=== PATIENT | male | born 1965 | race Two or more races ===

== ENCOUNTER 2020-03-17 11:34 | Outpatient (REF) | payer MEDICAID, SELFPAY | END 2020-03-17 11:35 | disposition home or self-care (01) | LOC: HO.LAB 11:34 | PROVIDERS: PCP Emergency Medicine; Visit Provider Internal Medicine | DX: Z20.828 Contact with and (suspected) exposure to other viral communicable diseases (principal) | CPT/HCPCS: C9803; U0003 ==

== ENCOUNTER 2020-04-19 14:35 | Outpatient (REF) | payer MEDICAID, SELFPAY | END 2020-04-19 14:36 | disposition home or self-care (01) | LOC: HO.LAB 14:35 | PROVIDERS: Visit Provider Internal Medicine | DX: Z20.822 Contact with and (suspected) exposure to COVID-19 (principal) | CPT/HCPCS: 36415; C9803; U0003 ==

== ENCOUNTER 2020-06-06 14:42 | Outpatient (REF) | payer OTHER, SELFPAY | END 2020-06-06 14:43 | disposition home or self-care (01) | LOC: HO.LAB 14:42 | PROVIDERS: Visit Provider Internal Medicine | DX: Z20.822 Contact with and (suspected) exposure to COVID-19 (principal) | CPT/HCPCS: 36415; C9803; U0003; U0005 ==

== ENCOUNTER 2020-12-26 12:38 | Outpatient (REF) | payer MEDICAID, SELFPAY ==
--- NOTE | ~2020-12-26 | XR_ITS ---
EXAMINATION: XR KNEE, LEFT CLINICAL INFORMATION: Pain. COMPARISON: Radiographs dated 07/28/2016. TECHNIQUE: AP, lateral, tunnel, and sunrise views of the left knee. FINDINGS: Bony alignment and mineralization are normal. The lateral, medial and patellofemoral joint space compartments are well-maintained. There is minimal peripheral osteophyte formation of the articular surface of the patella. There is no fracture, dislocation or left knee joint effusion. No soft tissue gas or foreign body is seen. There is prepatellar soft tissue swelling. XR/XR knee LT 4V IMPRESSION: 1. No left knee fracture, dislocation or significant joint effusion is seen. 2. There is anterior left knee soft tissue swelling. 3. There is minimal osteoarthritic change of the left patellofemoral compartment.
== END 2020-12-26 12:39 | disposition home or self-care (01) ==
LOC: HO.XRAY 12:38
PROVIDERS: Absent Provider Nurse Practitioner Family; PCP Nurse Practitioner Family; Visit Provider Emergency Medicine
DX: M25.562 Pain in left knee (principal)
CPT/HCPCS: 73564

== ENCOUNTER 2021-02-12 20:05 | Emergency (ER) | payer MEDICAID, SELFPAY ==
[2021-02-12 20:20] VITALS: BP 151/76; PULSE 102; RESP 18; TEMP 36.6; O2SAT 96; BMI 37.2
--- NOTE | 2021-02-12 23:58 | ECG_ITS ---
Test Reason : HYPERTENSION Blood Pressure : / mmHG Vent. Rate : 091 BPM Atrial Rate : 091 BPM P-R Int : 162 ms QRS Dur : 074 ms QT Int : 342 ms P-R-T Axes : 043 004 012 degrees QTc Int : 420 ms Normal sinus rhythm Normal ECG When compared with ECG of 18-JUN-2011 12:59, No significant change was found Referred By: Lissa Lora Electronically Signed By:MERRY FERNANDEZ MD
--- NOTE | 2021-02-13 | ED.GENADULT ---
HPI - General Adult General Chief complaint: General Medical Stated complaint: hypertension Time Seen by Provider: 02/12/21 23:58 Source: patient and interpreter and translator Mode of arrival: ambulatory Limitations: no limitations History of Present Illness MD complaint: HTN Onset (ago): day(s) (3) Severity: mild Quality: dull Relieving factors: none Exacerbating factors: none Associated symptoms: other (has had mild dull headache noted BP to 190 at times, compliant with his 40mg lisinopril daily) Treatments prior to arrival: none Related Data Previous Rx's Medication Instructions Recorded metoprolol succinate 25 mg 25 mg PO DAILY #30 tab 02/13/21 tablet,extended release 24 hr Allergies Allergy/AdvReac Type Severity Reaction Status Date / Time No Known Allergies Allergy Verified 02/12/21 20:20 Review of Systems Review of Systems: Constitutional : No Fever, No Chills, No Fatigue ENT/Mouth : No sore throat, No Rhinorrhea Eyes: No Eye Pain, No Swelling, No Redness Cardiovascular : No Chest Pain, No SOB, No Dyspnea on Exertion Respiratory : No Cough, No Sputum Gastrointestinal : No Nausea, No Vomiting, No Diarrhea, No abdominal Pain Genitourinary : No Dysuria, No Urinary Frequency, No Hematuria, Musculoskeletal : No joint pain, No Myalgias, No Joint Swelling Skin : No Skin Lesions, No rash Neuro : No Weakness, No Numbness, No Dizziness, positive Headache Psych : No Anxiety/Panic, No Depression Heme/Lymph: No Bruising, No Bleeding,No Lymphadenopathy Endocrine : No Polyuria, No Polydipsia All other systems reviewed and are negative [facility] Past Medical History Attestation statement: The following information was validated with the patient. Medical History Anemia Diabetes High cholesterol Hypertension Kidney stones Surgical History H/O lithotripsy Hx of tonsillectomy Social History Social History (Updated 02/13/21 @ 00:32 by Lissa Lora DO) Patient Tobacco Use Status: Never used Tobacco Advance Directives: No Advance Directives Information Provided: Yes Physical Exam Vital Signs: Vital Signs: Last Vital Signs Temp 97.9 F 02/12/21 20:20 Pulse 90 02/13/21 00:24 Resp 20 02/13/21 00:24 BP 169/80 H 02/13/21 00:24 Pulse Ox 98 02/13/21 00:24 Body Mass Index 37.2 Appearance: Alert. Oriented X3. No acute distress. Eyes: Pupils equal, round and reactive to light. ENT: Pharynx normal. Neck: Normal inspection. Neck supple. CVS: Normal heart rate and rhythm. Pulses normal. Respiratory: No respiratory distress. Breath sounds normal. Abdomen: Soft and nontender. Skin: Skin warm and dry. Normal skin color. Normal skin turgor. Extremities: No lower extremity edema. No calf ttp Neuro: Oriented X 3. No motor deficit. No sensory deficit. Course Course Course Narrative: Cr slightly increased from baseline K 5.3 HR 102 to 90s will start on low dose bblocker and have him follow up with PCP Medical Decision Making MDM Narrative Medical decision making narrative: 55 yo male with DM and HTN here with c/o HTN for 3 days and very mild posterior headache with BPs up to 190s currently 160/70s with mild dull headache he is compliant with is 40mg lisinopril daily. No CP/SOB. will obtain EKG and basic labs pending BP reads may need to add on additional low dose BP medications until PCP follow up. Lab Data Result diagrams: 02/13/21 00:27 02/13/21 00:27 Labs: Lab Results 02/13/21 02/13/21 Range/Units 00:27 00:27 WBC 13.7 H (4.8-10.8) X10*3/uL RBC 4.63 (4.60-5.80) X10*6/uL Hgb 13.1 L (14.0-18.0) g/dl Hct 41.3 L (42.0-52.0) % MCV 89.2 (80.0-98.0) fL MCH 28.3 (27.0-33.0) pg MCHC 31.7 (31.0-36.0) g/dl RDW 13.2 (11.0-16.0) % Plt Count 392 (160-400) X10*3/uL MPV 10.0 (9.4-12.4) fL Immature Gran % (Auto) 0.2 (0.0-0.4) % Neut % (Auto) 62.1 (45-73) % Lymph % (Auto) 30.2 (20-40) % [place] % (Auto) 6.9 (2-11) % Eos % (Auto) 0.4 (0-4) % Baso % (Auto) 0.2 (0-2) % Lymph # (Auto) 4.1 (1.2-4.9) X10*3/uL [place] # (Auto) 0.9 (0.1-1.2) X10*3/uL Eos # (Auto) 0.1 (0.0-0.4) X10*3/uL Baso # (Auto) 0.0 (0.0-0.2) X10*3/uL Abs Immat Gran (auto) 0.03 (0.00-0.03) X10*3/uL Absolute Neuts (auto) 8.5 H (2.0-8.3) x10*3/uL Absolute Nucleated RBC 0.000 (0.0-0.012) X10*3/uL Nucleated RBC % (auto) 0.0 (0.0-0.2) /100WBC Sodium 140 (135-145) mmol/L Potassium 5.3 H (3.3-5.1) mmol/L Chloride 103 (96-108) mmol/L Carbon Dioxide 28 (22-29) mmol/L Anion Gap 14 (12-20) BUN 22 H (9-16) mg/dL Creatinine 1.78 H (0.5-1.4) mg/dL Estim Creat Clear Calc 57.1 Estimated GFR 40 Random Glucose 127 H (60-115) mg/dL Calcium 10.8 H (8.4-10.2) mg/dL ECG Data Attestation: I personally reviewed and interpreted this ECG as follows: Interpretation: Rate: 91 Rhythm: NSR [place]: normal Normal P waves. Normal NORMA. Normal QRS complex. ST T wave : normal no BELA qTC: normal prior studies: no acute ischemia The study has been interpreted contemporaneously by me. . Discharge Plan Discharge Clinical Impression: Hypertension, Chronic renal insufficiency Patient Disposition: Home, Self-Care Instructions: Chronic Hypertension (ED), Chronic Kidney Disease (ED), Low-Sodium Diet (ED) Additional Instructions: return to ED for any worsening symptoms or concerns Prescriptions: New metoprolol succinate 25 mg tablet extended release 24 hr 25 mg PO DAILY Qty: 30 RF: 0 Referrals: [place] [Primary Care Provider] - 2 days Stand Alone Forms: Work/School Release Print Language: Mauritanian
--- NOTE | 2021-02-13 00:09 | PC.NURSE ---
at bedside for primary eval.
--- NOTE | 2021-02-13 00:12 | PC.NURSE ---
Provider at bed side for primary eval.
[2021-02-13 00:24] VITALS: BP 169/80; PULSE 90; RESP 20; O2SAT 98
[2021-02-13 00:35] LABS: MANUAL DIFF FLAG NO
[2021-02-13 00:36] LABS: Basophils Percent Auto 0.2 % (0-2); Eosinophils Absolute Auto 0.1 X10*3/uL (0.0-0.4); Eosinophils Percent Auto 0.4 % (0-4); Hematocrit 41.3 % (42.0-52.0); Hemoglobin 13.1 g/dl (14.0-18.0); Imm Gran Abs Auto 0.03 X10*3/uL (0.00-0.03); Imm Gran Pct Auto 0.2 % (0.0-0.4); Lymphocytes Absolute Auto 4.1 X10*3/uL (1.2-4.9); Lymphocytes Percent Auto 30.2 % (20-40); Mean Corpuscular HGB Conc 31.7 g/dl (31.0-36.0); Mean Corpuscular Hemoglobin 28.3 pg (27.0-33.0); Mean Corpuscular Volume 89.2 fL (80.0-98.0); Monocytes Absolute Auto 0.9 X10*3/uL (0.1-1.2); Monocytes Percent Auto 6.9 % (2-11); Neutrophils Absolute Auto 8.5 x10*3/uL (2.0-8.3); Neutrophils Percent Auto 62.1 % (45-73); Platelet Count 392 X10*3/uL (160-400); Red Blood Count 4.63 X10*6/uL (4.60-5.80); Red Cell Distribution Width 13.2 % (11.0-16.0); White Blood Count 13.7 X10*3/uL (4.8-10.8)
[2021-02-13 01:02] LABS: Anion Gap 14 (12-20); Blood Urea Nitrogen 22 mg/dL (9-16); Calcium 10.8 mg/dL (8.4-10.2); Carbon Dioxide 28 mmol/L (22-29); Chloride 103 mmol/L (96-108); Creatinine Clr Calc Pharmacy 57.1; Estimated Glomerular Filt Rate 40; Glucose Random 127 mg/dL (60-115); Potassium 5.3 mmol/L (3.3-5.1); Sodium 140 mmol/L (135-145)
[2021-02-13 01:29] VITALS: BP 134/73; PULSE 72; RESP 20
== END 2021-02-13 01:31 | disposition home or self-care (01) ==
PROVIDERS: Emergency Provider Emergency Medicine
DX: I12.9 Hypertensive chronic kidney disease with stage 1 through stage 4 chronic kidney disease, or unspecified chronic kidney disease (principal); E11.22 Type 2 diabetes mellitus with diabetic chronic kidney disease; N18.9 Chronic kidney disease, unspecified; Z79.899 Other long term (current) drug therapy
CPT/HCPCS: 36415; 80048; 85025; 93005; 99283; 99284

== ENCOUNTER → 2021-08-07 22:02 | Outpatient (REF) | payer MEDICAID, SELFPAY | LOC: HO.SL 22:02 | PROVIDERS: PCP Nurse Practitioner Family; Visit Provider Nurse Practitioner Family | DX: G47.33 Obstructive sleep apnea (adult) (pediatric) (principal); I10 Essential (primary) hypertension | CPT/HCPCS: 95811 ==

== ENCOUNTER 2023-05-01 10:15 | Outpatient (REF) | payer MEDICAID, SELFPAY ==
[2023-05-01 11:44] LABS: Estimated Average Glucose 338 mg/dL; Hemoglobin A1c % 13.4 % (<6.0)
[2023-05-01 11:56] LABS: Alanine Aminotransferase 26 U/L (0-40); Albumin Level 4.5 g/dL (3.5-5.0); Alkaline Phosphatase 80 U/L (39-117); Anion Gap 16 (12-20); Aspartate Amino Transferase 24 U/L (5-37); Bilirubin Total 0.4 mg/dL (0.0-1.0); Blood Urea Nitrogen 46 mg/dL (9-16); Calcium 9.9 mg/dL (8.4-10.2); Carbon Dioxide 21 mmol/L (22-29); Chloride 102 mmol/L (96-108); Cholesterol 301 mg/dL (<200); Estimated Glomerular Filt Rate 28; Glucose Random 268 mg/dL (60-115); HDL Cholesterol 34 mg/dL (>40); Potassium 4.8 mmol/L (3.3-5.1); Sodium 134 mmol/L (135-145); Total Protein 9.1 g/dL (6.5-8.0); Triglycerides 496 mg/dL (<150)
[2023-05-01 12:17] LABS: Creatinine Urine 126.46 mg/dL; Microalbum/Creatinine Ratio Ur 60.8 ug/mg cr (<30)
== END 2023-05-01 10:16 | disposition home or self-care (01) ==
LOC: HO.HHCL 10:15
PROVIDERS: Visit Provider Registered Nurse
DX: E11.65 Type 2 diabetes mellitus with hyperglycemia (principal); E78.2 Mixed hyperlipidemia
CPT/HCPCS: 36415; 80053; 80061; 82043; 82570; 83036

== ENCOUNTER 2023-05-16 12:13 | Outpatient (REF) | payer OTHER, SELFPAY ==
[2023-05-16 13:24] LABS: MANUAL DIFF FLAG NO
[2023-05-16 13:25] LABS: Appearance Urine Clear; Color Urine Yellow; Glucose Urine UA >=1000 mg/dL (Negative); Leukocyte Esterase Urine Negative (Negative); Nitrite Urine Negative (Negative); PH 5.5 (5.0-9.0); Specific Gravity - Urine 1.025 (1.005-1.025); UMIC TRIGGER UA YES; UMIC TRIGGER UACC YES; Urine Blood Negative (Negative); Urine Ketones Negative (Negative); Urine Protein Negative (Neg-Trace)
[2023-05-16 13:29] LABS: Basophils Absolute Auto 0.1 X10*3/uL (0.0-0.2); Basophils Percent Auto 0.6 % (0-2); Eosinophils Absolute Auto 0.2 X10*3/uL (0.0-0.4); Eosinophils Percent Auto 2.4 % (0-4); Hematocrit 42.4 % (42.0-52.0); Hemoglobin 13.6 g/dl (14.0-18.0); Imm Gran Abs Auto 0.01 X10*3/uL (0.00-0.03); Imm Gran Pct Auto 0.1 % (0.0-0.4); Lymphocytes Absolute Auto 3.4 X10*3/uL (1.2-4.9); Lymphocytes Percent Auto 40.8 % (20-40); Mean Corpuscular HGB Conc 32.1 g/dl (31.0-36.0); Mean Corpuscular Hemoglobin 29.5 pg (27.0-33.0); Mean Platelet Volume 10.4 fL (9.4-12.4); Monocytes Absolute Auto 0.6 X10*3/uL (0.1-1.2); Monocytes Percent Auto 7.3 % (2-11); Neutrophils Absolute Auto 4.1 x10*3/uL (2.0-8.3); Neutrophils Percent Auto 48.8 % (45-73); Platelet Count 334 X10*3/uL (160-400); Red Blood Count 4.61 X10*6/uL (4.60-5.80); Red Cell Distribution Width 12.7 % (11.0-16.0); White Blood Count 8.4 X10*3/uL (4.8-10.8)
[2023-05-16 13:32] LABS: Bacteria Urine None Seen (None Seen); Hyaline Casts Urine 0-2 /LPF (0-2); RBC Urine 0-2 /HPF (0-2); Squamous Epithelial Cell Urine 0-2 /HPF (0-2); WBC Urine 0-5 /HPF (0-5)
[2023-05-16 13:39] LABS: Estimated Average Glucose 295 mg/dL; Hemoglobin A1c % 11.9 % (<6.0)
[2023-05-16 14:07] LABS: Anion Gap 13 (12-20); Blood Urea Nitrogen 29 mg/dL (9-16); Calcium 9.8 mg/dL (8.4-10.2); Carbon Dioxide 25 mmol/L (22-29); Chloride 106 mmol/L (96-108); Estimated Glomerular Filt Rate 38; Potassium 4.4 mmol/L (3.3-5.1); Sodium 140 mmol/L (135-145)
[2023-05-16 14:08] LABS: Creatinine Urine 86.12 mg/dL; Total Protein Urine Random < 7 mg/dL (<12)
[2023-05-19 10:14] LABS: Complement C3 194 mg/dL (82-185)
[2023-05-19 10:37] LABS: Kappa Light Chain, Free Serum 75.1 mg/L (3.3-19.4); Kappa/Lambda Lt Ch Free Ratio 1.66 (0.26-1.65); Lambda Light Chain, Free Serum 45.3 mg/L (5.7-26.3)
[2023-05-19 11:19] LABS: Prot Elec - Albumin 4.7 g/dL (3.8-4.8); Prot Elec - Alpha1 0.3 g/dL (0.2-0.3); Prot Elec - Alpha2 0.8 g/dL (0.5-0.9); Prot Elec - Beta 1 0.5 g/dL (0.4-0.6); Prot Elec - Beta 2 0.6 g/dL (0.2-0.5); Prot Elec - Gamma 1.5 g/dL (0.8-1.7); Prot Elec - Total Protein 8.4 g/dL (6.1-8.1)
[2023-05-21 08:13] LABS: Neutrophil Cyto Ab Screen NEGATIVE (NEGATIVE)
[2023-05-25 10:03] LABS: ANA Pattern 2 Nuclear, Homogeneous; Anti Nuclear Antibody Pattern Nuclear, Speckled; Anti Nuclear Antibody Screen POSITIVE (NEGATIVE)
== END 2023-05-16 12:14 | disposition home or self-care (01) ==
LOC: HO.HHCL 12:13
PROVIDERS: Visit Provider Physician Assistant
DX: I12.9 Hypertensive chronic kidney disease with stage 1 through stage 4 chronic kidney disease, or unspecified chronic kidney disease (principal); E11.22 Type 2 diabetes mellitus with diabetic chronic kidney disease; N18.32 Chronic kidney disease, stage 3b; E78.5 Hyperlipidemia, unspecified
CPT/HCPCS: 80051; 81001; 82310; 82565; 82570; 83036; 83521; 84156; 84165; 84520; 85025; 86036; 86038; 86039; 86160; 86335

== ENCOUNTER 2023-05-20 11:13 | Outpatient (REF) | payer OTHER, SELFPAY ==
[2023-05-21 06:28] LABS: C Peptide 3.65 ng/mL (0.80-3.85)
[2023-05-22 21:19] LABS: Glutamic acid decarboxylase Ab <5 IU/mL (<5)
[2023-05-24 18:58] LABS: Insulinoma associated 2 aatb <5.4 U/mL (<5.4)
[2023-05-25 03:04] LABS: Insulin Auto Antibody <0.4 U/mL (<0.4)
== END 2023-05-20 11:14 | disposition home or self-care (01) ==
LOC: HO.HHCL 11:13
PROVIDERS: Visit Provider Registered Nurse
DX: E11.65 Type 2 diabetes mellitus with hyperglycemia (principal)
CPT/HCPCS: 36415; 84681; 86337; 86341

== ENCOUNTER 2023-11-12 11:34 | Outpatient (REF) | payer OTHER, SELFPAY ==
[2023-11-12 13:46] LABS: Cholesterol 250 mg/dL (<200); HDL Cholesterol 39 mg/dL (>40); Triglycerides 454 mg/dL (<150)
== END 2023-11-12 11:35 | disposition home or self-care (01) ==
LOC: HO.HHCL 11:34
PROVIDERS: Visit Provider Registered Nurse
DX: E78.2 Mixed hyperlipidemia (principal)
CPT/HCPCS: 36415; 80061

== ENCOUNTER 2023-11-27 10:33 | Outpatient (REF) | payer MEDICARE, MEDICAID, SELFPAY ==
[2023-11-27 13:13] LABS: Appearance Urine Clear; Color Urine Yellow; Glucose Urine UA >=1000 mg/dL (Negative); Leukocyte Esterase Urine Negative (Negative); Nitrite Urine Negative (Negative); UMIC TRIGGER UACC YES; Urine Blood Negative (Negative); Urine Ketones Negative (Negative); Urine Protein Negative (Neg-Trace)
[2023-11-27 13:14] LABS: MANUAL DIFF FLAG NO
[2023-11-27 13:22] LABS: Basophils Absolute Auto 0.1 X10*3/uL (0.0-0.2); Basophils Percent Auto 0.5 % (0-2); Eosinophils Absolute Auto 0.2 X10*3/uL (0.0-0.4); Eosinophils Percent Auto 2.2 % (0-4); Hematocrit 41.4 % (42.0-52.0); Hemoglobin 13.4 g/dl (14.0-18.0); Imm Gran Abs Auto 0.04 X10*3/uL (0.00-0.03); Imm Gran Pct Auto 0.4 % (0.0-0.4); Lymphocytes Absolute Auto 4.4 X10*3/uL (1.2-4.9); Lymphocytes Percent Auto 44.9 % (20-40); Mean Corpuscular HGB Conc 32.4 g/dl (31.0-36.0); Mean Corpuscular Hemoglobin 29.4 pg (27.0-33.0); Mean Corpuscular Volume 90.8 fL (80.0-98.0); Mean Platelet Volume 10.6 fL (9.4-12.4); Monocytes Absolute Auto 0.9 X10*3/uL (0.1-1.2); Monocytes Percent Auto 9.4 % (2-11); Neutrophils Absolute Auto 4.2 x10*3/uL (2.0-8.3); Neutrophils Percent Auto 42.6 % (45-73); Platelet Count 336 X10*3/uL (160-400); Red Blood Count 4.56 X10*6/uL (4.60-5.80); Red Cell Distribution Width 13.2 % (11.0-16.0); White Blood Count 9.8 X10*3/uL (4.8-10.8)
[2023-11-27 13:28] LABS: Bacteria Urine None Seen (None Seen); Hyaline Casts Urine 0-2 /LPF (0-2); RBC Urine 0-2 /HPF (0-2); Squamous Epithelial Cell Urine 0-2 /HPF (0-2); WBC Urine 0-5 /HPF (0-5)
[2023-11-27 13:31] LABS: Alanine Aminotransferase 21 U/L (0-40); Albumin Level 4.2 g/dL (3.5-5.0); Alkaline Phosphatase 60 U/L (39-117); Anion Gap 14 (12-20); Aspartate Amino Transferase 21 U/L (5-37); Bilirubin Total 0.4 mg/dL (0.0-1.0); Blood Urea Nitrogen 40 mg/dL (9-16); Calcium 9.8 mg/dL (8.4-10.2); Carbon Dioxide 21 mmol/L (22-29); Chloride 107 mmol/L (96-108); Estimated Glomerular Filt Rate 34; Glucose Random 169 mg/dL (60-115); Potassium 4.7 mmol/L (3.3-5.1); Sodium 137 mmol/L (135-145); Total Protein 8.2 g/dL (6.5-8.0)
[2023-11-27 14:02] LABS: Creatinine Urine 112.84 mg/dL; Microalbum/Creatinine Ratio Ur 13.2 ug/mg cr (<30)
[2023-11-27 14:02] LABS: Anion Gap 14 (12-20); Blood Urea Nitrogen 39 mg/dL (9-16); Calcium 9.9 mg/dL (8.4-10.2); Carbon Dioxide 21 mmol/L (22-29); Chloride 107 mmol/L (96-108); Cholesterol 233 mg/dL (<200); Estimated Glomerular Filt Rate 34; Ferritin 405 ng/mL (20-250); HDL Cholesterol 38 mg/dL (>40); Iron 66 mcg/dL (45-160); LDL Cholesterol Calculated 126 mg/dL (<100); Magnesium 2.6 mg/dL (1.6-2.6); Percent Iron Saturation 27 % (15-50); Potassium 4.6 mmol/L (3.3-5.1); Sodium 137 mmol/L (135-145); Total Iron Binding Capacity 249 mcg/dL (228-428); Triglycerides 345 mg/dL (<150); Unsaturated Iron Binding 183 ug/dL; Vitamin D 25-OH Total 35.8 ng/mL (>30)
[2023-11-27 14:05] LABS: Estimated Average Glucose 203 mg/dL; Hemoglobin A1c % 8.7 % (<6.0)
[2023-11-27 14:14] LABS: Parathyroid Hormone Intact 96.2 pg/mL (8.7-77.1)
== END 2023-11-27 10:34 | disposition home or self-care (01) ==
LOC: HO.HHCL 10:33
PROVIDERS: Referring Provider Registered Nurse; Visit Provider Physician Assistant
DX: E78.2 Mixed hyperlipidemia (principal); I12.9 Hypertensive chronic kidney disease with stage 1 through stage 4 chronic kidney disease, or unspecified chronic kidney disease; E11.22 Type 2 diabetes mellitus with diabetic chronic kidney disease; N18.32 Chronic kidney disease, stage 3b
CPT/HCPCS: 36415; 80051; 80053; 80061; 81001; 82043; 82306; 82310; 82565; 82570; 82728; 83036; 83540; 83735; 83970; 84520; 85025

== ENCOUNTER 2024-02-10 14:53 | Outpatient (REF) | payer OTHER, SELFPAY ==
[2024-02-10 16:44] LABS: Alanine Aminotransferase 26 U/L (0-40); Albumin Level 4.2 g/dL (3.5-5.0); Alkaline Phosphatase 74 U/L (39-117); Anion Gap 16 (12-20); Aspartate Amino Transferase 25 U/L (5-37); Bilirubin Total 0.3 mg/dL (0.0-1.0); Blood Urea Nitrogen 35 mg/dL (9-16); Calcium 10.1 mg/dL (8.4-10.2); Carbon Dioxide 21 mmol/L (22-29); Chloride 106 mmol/L (96-108); Estimated Glomerular Filt Rate 37; Glucose Random 266 mg/dL (60-115); Potassium 5.3 mmol/L (3.3-5.1); Sodium 138 mmol/L (135-145); Total Protein 8.5 g/dL (6.5-8.0)
== END 2024-02-10 14:54 | disposition home or self-care (01) ==
LOC: HO.HHCL 14:53
PROVIDERS: Visit Provider Registered Nurse
DX: E11.65 Type 2 diabetes mellitus with hyperglycemia (principal)
CPT/HCPCS: 36415; 80053

== ENCOUNTER 2024-02-12 13:18 | Outpatient (REF) | payer OTHER, SELFPAY ==
[2024-02-12 18:20] LABS: Anion Gap 16 (12-20); Blood Urea Nitrogen 40 mg/dL (9-16); Calcium 9.7 mg/dL (8.4-10.2); Carbon Dioxide 21 mmol/L (22-29); Chloride 104 mmol/L (96-108); Estimated Glomerular Filt Rate 31; Glucose Random 199 mg/dL (60-115); Potassium 4.7 mmol/L (3.3-5.1); Sodium 136 mmol/L (135-145)
== END 2024-02-12 13:19 | disposition home or self-care (01) ==
LOC: HO.HHCL 13:18
PROVIDERS: Visit Provider Registered Nurse
DX: E87.5 Hyperkalemia (principal)
CPT/HCPCS: 36415; 80048

== ENCOUNTER 2024-05-26 15:21 | Outpatient (REF) | payer OTHER, SELFPAY ==
[2024-05-26 16:33] LABS: Cholesterol 202 mg/dL (<200); HDL Cholesterol 38 mg/dL (>40); Triglycerides 404 mg/dL (<150)
[2024-05-26 17:02] LABS: Creatinine Urine 94.81 mg/dL; Microalbum/Creatinine Ratio Ur 14.7 ug/mg cr (<30)
--- OUTSIDE RECORDS SUMMARY | 2024-05-26 18:57 | XMS_ITS | Encounter Summary ---
Author Organization [employer] Address [address] [facility] 7[address] [place] [address] Care Team Providers Care Machinist Supervisor Name Role Phone [facility] Primary Care Provider [phone] Encounter Details Date Type Department Care Team (Late st Contact Info) Description 05/16/2022 Orders Only [facility] [address] [place] [address] [phone] [facility] [address] [place] [address] Mixed hyperlipidemia (Primary Dx); Elevated serum creatinine; On statin therapy Social History Tobacco Use Types Packs/Day Years Used Date Smoking Tobacco: Never Smokeless Tobacco: Never Alcohol Use Standard Drinks/Week Comments Never 0 (1 standard drink = 0.6 oz pur e alcohol) PHQ-2 Answer Date Recorded Patient Health Questionnaire-2 Score 0 05/14/2022 Sex and Gender Information Value Date Recorded Sex Assigned at Male 01/28/2022 10:14 AM EDT Legal Sex Male 10:14 AM EDT Gender Identity Male 01/28/2022 10:14 AM EDT Sexual Orientation Choose not to disclose 2021 10:14 AM EDT COVID-19 Exposure Response Date Recorded In the last 10 days, have yo u been in contact with someone who was confirmed or suspected to have Coronavirus/COVID-19? No / Unsure 05/14/2022 1:50 PM EST documented as of this encounter Plan of Treatment Upcoming Encounters Date Type Department Care Team (Late st Contact Info) Description 05/31/2024 11:30 AM EST Clinical Support [facility] [address] [place] [id number] documented as of this encounter Procedures Procedure Name Priority Date/Time Associated Diagnosis Comments PSA, TOTAL Routine 07/23/2022 12:27 PM EDT CREATINE KINASE, TOTAL Routine 07/23/2022 12:27 PM EDT On statin therapy LIPID PANEL, STANDARD Routine 07/23/2022 12:27 PM EDT Mixed hyperlipidemia COMPREHENSIVE METABOLIC PANEL Routine 07/23/2022 12:27 PM EDT Mixed hyperlipidemia documented in this encounter Results * PSA,Total (07/23/2022 12:27 PM EDT) PSA, Total 0.17 < OR = 4.00 ng/mL [facility] [place] [facility] Comment: The total PSA value from this assay system is standardized against the WHO standard. The test result will be approximately 20% lower when compared to the equimolar-standardized total PSA (Willi Eidson). Comparison of serial PSA results should be interpreted with this fact in mind. This test was performed using the Siemens chemiluminescent method. Values obtained from different assay methods cannot be used interchangeably. PSA levels, regardless of value, should not be interpreted as absolute evidence of the presence or absence of disease. 07/23/2022 12:2 7 PM EDT 07/23/2022 12:27 PM EDT Narrative [facility] - 07/24/2022 2:59 AM EDT FASTING:YES FASTING: YES [facility] LAB BLOOD ORDERABLES Final Re sult [facility] [address], [place] [address] [facility] [place] [facility] [address] [place] [address] * (ABNORMAL) Creatine Kinase, Total (07/23/2022 12:27 PM EDT) Creatine Kinase, Total 239(H) 44 - 196 U/L [facility] [place] [facility] Blood Venous blood specimen / Unknown 07/23/2022 12:27 PM EDT 07/23/2022 12:27 PM EDT Narrative [facility] - 07/24/2022 2:59 AM EDT FASTING:YES FASTING: YES [facility] LAB BLOOD ORDERABLES Final Re sult [facility] [address], [place] [address] [facility] [place] [facility] [address] [place] [address] * (ABNORMAL) Lipid Panel, Standard (07/23/2022 12:27 PM EDT) Cholesterol, Total 172 <200 mg/dL [facility] [place] [facility] HDL Cholesterol 45 > OR = 40 mg/dL [facility] [place] [facility] Triglycerides 355(H) <150 mg/dL [facility] [place] [facility] Comment: If a non-fasting specimen was collected, consider repeat triglyceride testing on a fasting specimen if clinically indicated. Tre et al. J. of Clin. Lipidol. 2015;9:129-169. LDL Cholesterol 84 mg/dL (calc) [facility] [place] [facility] Comment: Reference range: <100 Desirable range <100 mg/dL for primary prevention; ?? <70 mg/dL for patients with CHD or diabetic patients with > or = 2 CHD risk factors. LDL-C is now calculated using the Brian-Philomena calculation, which is a validated novel method providing better accuracy than the Friedewald equation in the estimation of LDL-C. Brian JENSEN et al. BRAVO. 2013;310(19): 9675-5722 (http://education.Vision Sciences/faq/CRL272) Chol/HDLC Ratio 3.8 <5.0 (calc) [facility] [place] [facility] Non-HDL Cholesterol 127 <130 mg/dL (calc) [facility] [place] [facility] Comment: For patients with diabetes plus 1 major ASCVD risk factor, treating to a non-HDL-C goal of <100 mg/dL (LDL-C of <70 mg/dL) is considered a therapeutic option. Blood Venous blood specimen / Unknown 07/23/2022 12:27 PM EDT 07/23/2022 12:27 PM EDT Narrative [facility] - 07/24/2022 2:59 AM EDT FASTING:YES FASTING: YES [facility] LAB BLOOD ORDERABLES Final Re sult [facility] [address], [place] [address] [facility] [place] [facility] [address] [place] [address] * (ABNORMAL) Comprehensive Metabolic Panel (07/23/2022 12:27 PM EDT) Glucose 254(H) 65 - 99 mg/dL [facility] [place] [facility] Comment: ? Fasting reference interval For someone without known diabetes, a glucose value >125 mg/dL indicates that they may have diabetes and this should be confirmed with a follow-up test. Urea Nitrogen (BUN) 34(H) 7 - 25 mg/dL [facility] [place] [facility] Creatinine, Serum 1.60(H) 0.70 - 1.30 mg/dL [facility] [place] [facility] eGFR 50(L) > OR = 60 mL/min/1. 73m2 [facility] [place] [facility] Comment: The eGFR is based on the CKD-EPI 2020 equation. To calculate the new eGFR from a previous Creatinine or Cystatin C result, go to https://www.kidney.org/professionals/ kdoqi/gfr%5Fcalculator BUN/Creatinine Ratio 21 6 - 22 (calc) [facility] [place] [facility] Sodium 135 135 - 146 mmol/L [facility] [place] [facility] Potassium 4.7 3.5 - 5.3 mmol/L [facility] [place] [facility] Chloride 101 98 - 110 mmol/L [facility] [place] [facility] Carbon Dioxide 26 20 - 32 mmol/L [facility] [place] [facility] Calcium 9.8 8.6 - 10.3 mg/dL [facility] [place] [facility] Protein, Total 8.3(H) 6.1 - 8.1 g/dL [facility] [place] [facility] Albumin 4.4 3.6 - 5.1 g/dL [facility] [place] [facility] Globulin 3.9(H) 1.9 - 3.7 g/dL (calc) [facility] [place] [facility] Albumin/Globuli n Ratio 1.1 1.0 - 2.5 (calc) [facility] [place] [facility] Bilirubin, Total 0.4 0.2 - 1.2 mg/dL [facility] [place] [facility] Alkaline Phosphatase 67 35 - 144 U/L [facility] [place] [facility] AST 19 10 - 35 U/L [facility] [place] [facility] ALT 21 9 - 46 U/L [facility] [place] [facility] Blood Venous blood specimen / Unknown 07/23/2022 12:27 PM EDT 07/23/2022 12:27 PM EDT Narrative [facility] - 07/24/2022 2:59 AM EDT FASTING:YES FASTING: YES [facility] LAB BLOOD ORDERABLES Final Re sult [facility] [address], [place] [address] [facility] [place] [facility] [address] [place] [address] documented in this encounter Visit Diagnoses Diagnosis Mixed hyperlipidemia- Primary Elevated serum creatinine Other nonspecific findings on examination of blood On statin therapy documented in this encounter Additional Health Concerns Assessment Noted Time PHQ-9 Depression Total Score: 0 05/14/19 23 2:36 PM EST documented as of this encounter Care Teams Machinist Supervisor Relationship Specialty Start Date End Date Astrid Cohen FNP [address] [place] [address] PCP - General Family Medicine 11/24/21 documented as of this encounter
--- OUTSIDE RECORDS SUMMARY | 2024-05-26 18:57 | XMS_ITS | Encounter Summary ---
Author Organization [employer] Address [address] [facility] 7 [place] [address] Care Team Providers Care Quality Control Scientist Name Role Phone [facility] Primary Care Provider [phone] Reason for Visit * Reason Comments Pre-visit Planning SDOH screening negat saeid and tobacco screening negative Encounter Details Date Type Department Care Team ([facility] st Contact Info) Description 05/03/2024 Patient Outreach [facility] [address] [place], [place] [phone] [facility] [address] [place] [address] Pre-visit Planning (SDOH screening negative and tobacco screening negative) Social History Tobacco Use Types Packs/Day Years Used Date Smoking Tobacco: Never Smokeless Tobacco: Never Alcohol Use Standard Drinks/Week Comments Never 0 (1 standard drink = 0.6 oz pur e alcohol) Alcohol Answer Date Recorded Frequency of Alcohol Consumption Not on file 05/16/2023 Average Number of Drinks Not on file 024 Frequency of Binge Drinking Not on file 05/01 Score 0 05/16/2023 Depression Answer Date Recorded Patient Health Questionnaire-9 Score 0 12/25/2022 Housing Stability Answer Date Recorded What is your housing situation today? I have shira addison 01/22/[address] you li ve. Do you have problems with any of the following? None of the above 01/22/2023 Food Insecurity Answer Date Recorded Within the past 12 months, y ou worried that your food would run out before you got money to buy more: Never True 01/22/2023 Within the past 12 months,th e food you bought just didn't last and you didn't have enough money to get more: Never True Transportation Answer Date Recorded In the past 12 months, has l ack of transportation kept you from medical appts, meetings, work or from getting things needed for daily living? No 01/22/2023 Utilities Answer Date Recorded In the past 12 months, has t he electric, gas, oil or water company threatened to shut off services in your home? No 01/22/2023 Depression Answer Date Recorded Patient Health Questionnaire-2 Score 0 12/25/2022 Internet Access Answer Date Recorded Internet Access Q1 Yes 05/03/2024 Internet Access Q2 Not on file 05/03/2024 Sex and Gender Information Value Date Recorded Sex Assigned at Male 01/28/2022 10:14 AM EDT Legal Sex Male 10:14 AM EDT Gender Identity Male 01/28/2022 10:14 AM EDT Sexual Orientation Choose not to disclose 2021 10:14 AM EDT documented as of this encounter Progress Notes * Hanh Moore - 05/03/2024 9:54 AM EST CC Hanh placed successful outbound call to patient for pre-visit planning. Patient name and confirmed. Patient confirms appointment date and time, and has transportation arrangements. Biggest concern for appointment at this time is none Appropriate screenings completed in anticipation of appointment. documented in this encounter Plan of Treatment Upcoming Encounters Date Type Department Care Team (Late st Contact Info) Description 05/31/2024 11:30 AM EST Clinical Support [facility] [address] [place] [address] documented as of this encounter Visit Diagnoses Not on filedocumented in this encounter Additional Health Concerns Assessment Noted Time PHQ-9 Depression Total Score: 0 12/26/19 23 2:50 PM EDT documented as of this encounter Care Teams Quality Control Scientist Relationship Specialty Start Date End Date Astrid Cohen FNP [address] [place] [address] PCP - General Family Medicine 11/24/21 documented as of this encounter
--- OUTSIDE RECORDS SUMMARY | 2024-05-26 18:57 | XMS_ITS | Encounter Summary ---
Author Organization [facility] Address [address] [place] [address] Phone Care Team Providers Care Liquid Hydrogen Plant Operator Name Role Phone [facility] Primary Care Provider [phone] Encounter Details Date Type Department Care Team (Late st Contact Info) Description 09/12/2021 Documentation Only [facility] [address] [place] [phone] Ernie Rucker PA Social History Tobacco Use Types Packs/Day Years Used Date Smoking Tobacco: Every Day Cigarettes Alcohol Use Standard Drinks/Week Comments Yes 0 (1 standard drink = 0.6 oz pure alcohol) Alcoholic Drinks/day: Occasional social drink Sex and Gender Information Value Date Recorded Sex Assigned at Not on file Legal Sex Male 4:33 PM EST Gender Identity Not on file Sexual Orientation Not on file documented as of this encounter Plan of Treatment Upcoming Encounters Date Type Department Care Team (Late st Contact Info) Description 06/02/2024 1:45 PM EST Office Visit [facility] [address] [place] [phone] Sher Haddad MD [address] [place] [address] [place] [phone] documented as of this encounter Visit Diagnoses Not on filedocumented in this encounter Care Teams Liquid Hydrogen Plant Operator Relationship Specialty Start Date End Date Astrid Cohen [address] [place] [address] PCP - General 05/06/23 documented as of this encounter
--- OUTSIDE RECORDS SUMMARY | 2024-05-26 18:57 | XMS_ITS | Encounter Summary ---
Author Organization [employer] [facility] Address [address] [facility] 7t [place] [address] Care Team Providers Care Trademark Attorney Name Role Phone [facility] Primary Care Provider [phone] Reason for Visit * Reason Comments Med Refill Encounter Details Date Type Department Care Team (Late Contact Info) Description 06/09/2022 Refill [facility] [address] [place] [phone] [address] Social History Tobacco Use Types Packs/Day Years [...] was confirmed or suspected to have Coronavirus/COVID-19? Unable to assess 06/04/2022 5:55 PM EST documented as of this encounter Plan of Treatment Upcoming Encounters Date Type Department Care Team (Late Contact Info) Description 05/31/2024 11:30 AM EST Clinical Support [facility] [address] [place] [phone] documented as of this encounter Visit Diagnoses Not on filedocumented in this encounter Additional Health Concerns Assessment Noted Time PHQ-9 Depression Total Score: 0 05/14/19 23 2:36 PM EST documented as of this encounter Care Teams Trademark Attorney Relationship Specialty Start Date End Date Astrid Cohen FNP [address] [place] [address] PCP - General Family Medicine 11/24/21 documented as of this encounter
--- OUTSIDE RECORDS SUMMARY | 2024-05-26 18:57 | XMS_ITS | Encounter Summary ---
Author Organization [facility] Address [address] [place] [address] Phone Care Team Providers Care Chief Of Vital Statistics Name Role Phone [facility] Primary Care Provider [phone] Reason for Visit * Reason Comments Med Refill Encounter Details Date Type Department Care Team (Late st Contact Info) Description 10/17/2022 Refill [facility] [address] [place] [address] Ernie Rucker PA Social History Tobacco Use [...] Visit [facility] [address] [place] [address] Sher Haddad MD [address] [facility] [place] [phone] documented as of this encounter Visit Diagnoses Not on filedocumented in this encounter Care Teams Chief Of Vital Statistics Relationship Specialty Start Date End Date [facility] [address] [place] [address] PCP - General 05/06/23 documented as of this encounter
--- OUTSIDE RECORDS SUMMARY | 2024-05-26 18:57 | XMS_ITS | Clinical Summary ---
Author Organization [facility], Address [address] [place] [address] [place] [address] Phone Care Team Providers Care Underground Distribution Engineer Name Role Phone [facility] Primary Care Provider [phone] Allergies Active Allergy Reactions Criticality Noted Date Comments Atorvastatin 02/29/2020 Elevated lfts Simvastatin 02/29/2020 Elevated cpk Medications glipiZIDE (GLUCOTROL) 10 MG tablet Take 10 mg by mouth 2 (two) times a day before meals 0 Active aspirin EC 81 MG EC tablet Take 81 mg by mouth 1 (one) time each day Active rosuvastatin (CRESTOR) 20 MG tablet Take 20 mg by mouth 1 (one) time each day Active loratadine (CLARITIN) 10 MG tablet Take 10 mg by mouth 1 (one) time each day Active Cholecalcifero l (Vitamin D) 125 MCG (5000 UT) capsule Take 1 capsule by mouth 1 (one) time per week Active amLODIPine (NORVASC) 10 MG tablet Take 10 mg by mouth 1 (one) time each day Active ferrous sulfate 325 (65 Fe) MG EC tablet Take 325 mg by mouth in the morning and 325 mg at noon and 325 mg in the evening. Take with meals. Do not crush, chew, or split. . Active hydrOXYzine (ATARAX) 10 MG tablet Take 10 mg by mouth 3 (three) times a day if needed for itching Active Empagliflozin (Jardiance) 25 MG tablet Take 25 mg by mouth 1 (one) time each day in the morning Active omeprazole (PriLOSEC) [address] capsule Take 20 mg by mouth 1 (one) time each day Do not crush or chew. Active terbinafine (LamISIL) 250 MG tablet Take 250 mg by mouth 1 (one) time each day Active metoprolol succinate XL (TOPROL-XL) 100 MG 24 hr tablet Take 1 tablet (100 mg total) by mouth 1 (one) time each day 90 tablet 3 3 Active chlorthalidone 25 MG tablet Take 12.5 mg by mouth every morning 3 Active Trulicity 1.5 MG/0.5ML solution pen-injector INJECT ONE PEN (=1.5MG) SUBCUTANEOUSLY ONCE A WEEK DIRECTED 3 Active ezetimibe (ZETIA) 10 MG tablet Take 10 mg by mouth 3 Active FLUoxetine (PROzac) 10 MG capsule Take 10 mg by mouth 3 Active TRUEplus Lancets 33G misc USE TO TEST BLOOD SUGAR TWICE DAILY 3 Active lidocaine (LIDODERM) 5 % patch APPLY 1 PATCH TOPICALLY TO SKIN, LEAVE ON FOR 12 HOURS AND OFF FOR 12 HOURS DIRECTED NEEDED MILD PAIN 3 Active meloxicam (MOBIC) 15 MG tablet Take 15 mg by mouth 1 (one) time each day 3 Active olmesartan (BENICAR) 40 MG tablet Take 40 mg by mouth 3 Active Active Problems Problem Noted Date Diagnosed Date Essential (primary) hypertension 08/31/2020 Stage 3b chronic kidney disease 04/26/2019 Overview (04/03/2020): Update for Diagnosis Load Hypertensive heart and renal disease with (congestive) heart failure 04/26/2019 Renal disorder due to type 2 diabetes mellitus 0 04/26/2019 Type 2 diabetes mellitus Hyperlipidemia Resolved Problems Problem Noted Date Diagnosed Date Resolved Date Vitamin D deficiency 03/02/2020 021 Iron deficiency anemia 04/26/201908/29 Morbid obesity 04/26/2019 08/29/2020 Immunizations Name Administration Dates Next Due Influenza Split High Dose Preservative Free IM 0 11/29/2014 Influenza, MDCK, PF, Quadrivalent 02/23/2020 Influenza, Quadrivalent, With Preservative 03/01 Zoster 04/27/2020,02/23/2020 Family History Medical History Relation Comments Cancer Father aunt, uncle Heart disease Father Diabetes Mother aunt cousn Heart disease Mother Hypertension Mother Kidney disease Sibling 1 Brother Diabetes Sibling 2 brother Hypertension Sibling 3 sister Relation Status Comments Father Mother Unknown Sibling 1 Sibling 2 Sibling 3 Social History Tobacco Use Types Packs/Day Years Used Date Smoking Tobacco: Every Day Cigarettes Alcohol Use Standard Drinks/Week Comments Yes 0 (1 standard drink = 0.6 oz pure alcohol) Alcoholic Drinks/day: Occasional social drink Sex and Gender Information Value Date Recorded Sex Assigned at Not on file Legal Sex Male 4:33 PM EST Gender Identity Not on file Sexual Orientation Not on file Last Filed Vital Signs Vital Sign Reading Time Taken Comments Blood Pressure 130/68 11/26/2023 1:25 PM EDT Pulse 78 02/18/2019 12:00 PM EST Temperature - - Respiratory Rate 16 02/18/2019 12:00 PM EST Oxygen Saturation - - Inhaled Oxygen Concentration - - Weight 104 kg (228 lb 9.6 oz) 11/26/2023 1:25 P M EDT Height 175.3 cm (5' 9 ) 11/26/2023 1:25 PM EDT Body Mass Index 33.76 11/26/2023 1:25 PM EDT Plan of Treatment Upcoming Encounters Date Type Department Care Team (Late st Contact Info) Description 06/02/2024 1:45 PM EST Office Visit [facility] [address] [place] [phone] Sher Haddad MD [address] [place] [phone] Health Maintenance Due Date Last Done Comments Colorectal Cancer Screening: Annual FOBT 11/21/2012 Colorectal Cancer Screening: Colonoscopy 11/21/2012 Colorectal Cancer Screening: Sigmoidoscopy 11/21/2012 Diabetes: Ophthalmology Exam 04/26/2019 Diabetes: Pedal Pulse Checked 04/26/2019 Diabetes: Sensory Foot Exam 04/26/2019 Diabetes: Visual Foot Exam 04/26/2019 Hepatitis B Vaccine (3 of 3 - 19+ 3-dose series) 12/14/2022 08/15/2022, 06/13/2022 Influenza Vaccine (#1) 2023 , 12/31/2021, 01/02/2021, Additional history exists Diabetes: Hemoglobin A1C 02/05/2024 024, 05/01/2023, 04/25/2023, Additional history exists Pneumococcal Vaccine: Pediat rics (0 to 5 Years) and At-Risk Patients (6 to 64 Years) Completed 06/13/2022, 02/04/2019, 11/25/2008, Additional history exists Procedures Procedure Name Priority Date/Time Associated Diagnosis Comments HEMOGLOBIN A1C Routine 09/01/2020 12:01 PM EDT from Last 3 Months or Most Recently Relevant to Health Maintenance Results * (ABNORMAL) Hemoglobin A1c (09/01/2020 12:01 PM EDT) Hemoglobin A1C 8.6(H) <5.7 % of total Hgb [facility] Comment: For someone without known diabetes, a hemoglobin A1c value of 6.5% or greater indicates that they may have diabetes and this should be confirmed with a follow-up test. For someone with known diabetes, a value <7% indicates that their diabetes is well controlled and a value greater than or equal to 7% indicates suboptimal control. A1c targets should be individualized based on duration of diabetes, age, comorbid conditions, and other considerations. Currently, no consensus exists regarding use of hemoglobin A1c for diagnosis of diabetes for children. ?? 09/01/2020 12:0 1 PM EDT 09/01/2020 12:05 PM EDT Narrative [facility] - 09/02/2020 8:36 AM EDT FASTING:NO PATIENT UNABLE TO VOID; ADVISED TO RETURN FOR COLLECTION. FASTING: NO Resulting Agency Comment Performing Organization Information: ?Site ID: [id number] ?Name: [facility] ?Address: [address] [place] [address], [place] [address] ?Director: Jase Hatch us Kory Zuniga MD LAB BLOOD ORDERABLES Final Resul t [facility] from Last 3 Months or Most Recently Relevant to Health Maintenance Insurance MEDICAID [place] MEDICARE Care Teams Underground Distribution Engineer Relationship Specialty Start Date End Date [facility] [address] [place] [id number] PCP - General 05/06/23
--- OUTSIDE RECORDS SUMMARY | 2024-05-26 18:57 | XMS_ITS | Encounter Summary ---
Author Organization [facility] Address [address] [place] [address] Phone Care Team Providers Care Dental Nurse Name Role Phone [facility] Primary Care Provider [phone] Encounter Details Date Type Department Care Team (Late st Contact Info) Description 05/21/2023 Documentation Only [facility] [address] [place] [address] Sau[address]ha [address] [place] [address] Social History Tobacco Use Types Packs/Day Years [...] Visit [facility] [address] [place] [address] Sher Haddad MD [address] [place] [address] [place] [address] documented as of this encounter Visit Diagnoses Not on filedocumented in this encounter Care Teams Dental Nurse Relationship Specialty Start Date End Date [facility] [address] [place], [place] [phone] PCP - General 05/06/23 documented as of this encounter
--- OUTSIDE RECORDS SUMMARY | 2024-05-26 18:57 | XMS_ITS | Encounter Summary ---
Author Organization [facility] Address [address] [place] [address] Phone Care Team Providers Care Stone Gluer Name Role Phone [facility] [place] Primary Care Provider [phone] Encounter Details Date Type Department Care Team (Late st Contact Info) Description 03/06/2022 Documentation Only [facility] [address] [place] [phone] Ernie Rucker PA Social History Tobacco Use [...] Visit [facility] [address] [place] [phone] Sher Haddad MD [address] [place] [address] [place] [phone] documented as of this encounter Visit Diagnoses Not on filedocumented in this encounter Care Teams Stone Gluer Relationship Specialty Start Date End Date Astrid Cohen [address] [place] [address] PCP - General 05/06/23 documented as of this encounter
--- OUTSIDE RECORDS SUMMARY | 2024-05-26 18:57 | XMS_ITS | Encounter Summary ---
Author Organization [employer] Address [address] [place] [address] Care Team Providers Care Housekeeping Room Inspector Name Role Phone [facility] Primary Care Provider [phone] Encounter Details Date Type Department Care Team ([facility] st Contact Info) Description 07/09/2023 Orders Only [facility] [address] [place] [address] ProviderMacey MD Social History Tobacco Use Types Packs/Day Years [...] Recorded Patient Health Questionnaire-2 Score 0 12/25/2022 Sex and Gender Information Value Date Recorded Sex Assigned at Male 01/28/2022 10:14 AM EDT Legal Sex Male 10:14 AM EDT Gender Identity Male 01/28/2022 10:14 AM EDT Sexual Orientation Choose not to disclose 2021 10:14 AM EDT documented as of this encounter Plan of Treatment Upcoming Encounters Date Type Department Care Team (Late st Contact Info) Description 05/31/2024 11:30 AM EST Clinical Support [facility] [address] [place] [address] documented as of this encounter Procedures Procedure Name Priority Date/Time Associated Diagnosis Comments HM COLONOSCOPY Routine 08/30/2014 8:56 AM EDT documented in this encounter Results * Hm Colonoscopy (08/30/2014 8:56 AM EDT) us Historical Provider HEALTH MAINTENANCE Final Result documented in this encounter Visit Diagnoses Not on filedocumented in this encounter Additional Health Concerns Assessment Noted Time PHQ-9 Depression Total Score: 0 12/26/19 23 2:50 PM EDT documented as of this encounter Care Teams Housekeeping Room Inspector Relationship Specialty Start Date End Date Astrid Cohen FNP [address] [place] [address] PCP - General Family Medicine 11/24/21 documented as of this encounter
--- OUTSIDE RECORDS SUMMARY | 2024-05-26 18:57 | XMS_ITS | Encounter Summary ---
Author Organization [facility] Address [address] [place] [address] Phone Care Team Providers Care Platform Worker Name Role Phone [facility] Primary Care Provider [phone] Encounter Details Date Type Department Care Team (Late Contact Info) Description 09/12/2021 Documentation Only [facility] [address] [place] [address] Kory Zuniga MD [address] [place] [address] [place] [address] Social History Tobacco Use Types Packs/Day Years [...] Department Care Team (Late Contact Info) Description 06/02/2024 1:45 PM EST Office Visit [facility] [address] [place] [address] Sher Haddad MD [address] [place] [address] documented as of this encounter Visit Diagnoses Not on filedocumented in this encounter Care Teams Platform Worker Relationship Specialty Start Date End Date [facility] [address] [place] [phone] PCP - General 05/06/23 documented as of this encounter
--- OUTSIDE RECORDS SUMMARY | 2024-05-26 18:57 | XMS_ITS | Encounter Summary ---
Author Organization [facility] Address [address] [place] [address] Phone Care Team Providers Care Basketball Referee Name Role Phone [facility] Primary Care Provider [phone] Encounter Details Date Type Department Care Team (Late st Contact Info) Description 05/26/2023 Documentation Only [facility] [address] [place] [address] [address] [place] [address] Social History Tobacco Use Types [...] [facility] [address] [place] [address] Sher Haddad MD [address] [place] [address] [place] [address] documented as of this encounter Visit Diagnoses Not on filedocumented in this encounter Care Teams Basketball Referee Relationship Specialty Start Date End Date [facility] [address] [place], [place] [phone] PCP - General 05/06/23 documented as of this encounter
--- OUTSIDE RECORDS SUMMARY | 2024-05-26 18:57 | XMS_ITS | Encounter Summary ---
Author Organization [facility] Address [address] [place] [address] Phone Care Team Providers Care Franchise Development Manager Name Role Phone [facility] Primary Care Provider [phone] Encounter Details Date Type Department Care Team (Late st Contact Info) Description 05/22/2023 Documentation Only [facility] [address] [place] [address] Sau[address]ha [address] [place] [address] Social History Tobacco Use Types [...] Visit [facility] [address] [place] [address] Sher Haddad MD [address] [place] [address] [place] [address] documented as of this encounter Visit Diagnoses Not on filedocumented in this encounter Care Teams Franchise Development Manager Relationship Specialty Start Date End Date [facility] [address] [place], [place] [phone] PCP - General 05/06/23 documented as of this encounter
--- OUTSIDE RECORDS SUMMARY | 2024-05-26 18:57 | XMS_ITS | Encounter Summary ---
Author Organization [facility] Address [address] [place] [address] Phone Care Team Providers Care Supervisor Throwing Department Name Role Phone [facility] Primary Care Provider [phone] Reason for Visit * Reason Comments Med Refill Encounter Details Date Type Department Care Team (Late st Contact Info) Description 09/28/2022 Refill [facility] [address] [place] [address] Ernie Rucker PA Social History [...] Visit [facility] [address] [place] [address] Sher Haddad MD [address] [facility] [place] [phone] documented as of this encounter Visit Diagnoses Not on filedocumented in this encounter Care Teams Supervisor Throwing Department Relationship Specialty Start Date End Date [place] [facility] [place] [address] [place] [address] PCP - General 05/06/23 documented as of this encounter
--- OUTSIDE RECORDS SUMMARY | 2024-05-26 18:57 | XMS_ITS | Encounter Summary ---
Author Organization [facility] Address [address] [place] [address] Phone Care Team Providers Care Rock Worker Name Role Phone [facility] Primary Care Provider [phone] Encounter Details Date Type Department Care Team (Late st Contact Info) Description 09/12/2021 Documentation Only [facility] [address] [place] [phone] Ernie Rucker PA Social History Tobacco Use [...] Visit [facility] [address] [place] [phone] Sher Haddad MD [address] [place] [address] [place] [phone] documented as of this encounter Visit Diagnoses Not on filedocumented in this encounter Care Teams Rock Worker Relationship Specialty Start Date End Date Astrid Cohen [address] [place] [address] PCP - General 05/06/23 documented as of this encounter
--- OUTSIDE RECORDS SUMMARY | 2024-05-26 18:58 | XMS_ITS | Encounter Summary ---
Author Organization [employer] Address [address] [facility] 7t [place] [address] Care Team Providers Care Reading Tutor Name Role Phone [facility] Primary Care Provider Reason for Visit * Reason Comments Med Refill Encounter Details Date Type Department Care Team (Late st Contact Info) Description 05/26/2024 Refill [facility] [address] [place], [place] [phone] [facility] [address] [place] [address] Type 2 diabetes mellitus with hyperglycemia, without long-term current use of insulin ([facility]) Social History Tobacco Use Types Packs/Day Years [...] Date Recorded Patient Health Questionnaire-9 Score 0 05/14/2024 Patient Health Questionnaire-9 Score 0 05/14/2024 Last PHQ-9: Questionnaire Data Not on file 0 05/14/2024 Housing Stability Answer Date Recorded What is [...] Date Recorded Patient Health Questionnaire-2 Score 0 05/14/2024 Internet Access Answer Date Recorded Internet Access [...] Description 05/31/2024 11:30 AM EST Clinical Support [facility] [address] [place] [address] documented as of this encounter Visit Diagnoses Diagnosis Type 2 diabetes mellitus with hyperglycemia, without long-term current use of insulin ([facility]) documented in this encounter Additional Health Concerns Assessment Noted Time PHQ-9 Depression Total Score: 0 05/14/19 25 1:08 PM EST documented as of this encounter Care Teams Reading Tutor Relationship Specialty Start Date End Date Astrid Cohen FNP [address] [place] [address] PCP - General Family Medicine 11/24/21 documented as of this encounter
--- OUTSIDE RECORDS SUMMARY | 2024-05-26 18:58 | XMS_ITS | Encounter Summary ---
Author Organization [employer] Address [address] [facility] 7t [place] [address] Care Team Providers Care Freight Engineer Name Role Phone [facility] Primary Care Provider [phone] Encounter Details Date Type Department Care Team (Latest Contact Info) Description 05/14/2024 Travel Social History Tobacco Use Types Packs/Day Years [...] [facility] [address] [place] [address] documented as of this encounter Visit Diagnoses Not on filedocumented in this encounter Additional Health Concerns Assessment Noted Time PHQ-9 Depression Total Score: 0 05/14/19 25 1:08 PM EST documented as of this encounter Care Teams Freight Engineer Relationship Specialty Start Date End Date Astrid Cohen FNP [address] [place] [address] PCP - General Family Medicine 11/24/21 documented as of this encounter
--- OUTSIDE RECORDS SUMMARY | 2024-05-26 18:58 | XMS_ITS | Clinical Summary ---
Author Organization [facility] Address [address] [place] [address] Care Team Providers Care Restaurant Kitchen Manager Name Role Phone Unavailable Primary Care Provider Unavailabl e Source Comments PLEASE NOTE, if this patient is a minor, it may be UNLAWFUL to discuss sensitive information that is contained in these records (such as FAMILY PLANNING, MENTAL HEALTH or SUBSTANCE ABUSE) with the minor patient's parent or other person without the patient's specific authorization.[facility] Immunizations Name Administration Dates Next Due Moderna COVID-19 Vaccine, re d cap blue label, 12+ Primary Series 03/13/2021,07/31/2020,07/03/2020 Social History Tobacco Use Types Packs/Day Years Used Date Smoking Tobacco: Never Assessed Social Connections Answer Date Recorded Social Connections and Isolation 0 07/03/2020 Financial Resource Strain Answer Date R ecorded Financial Resource Strain 0 2020 Stress Answer Date Recorded Stress 0 07/03/2020 Physical Activity Answer Date Recorded Physical Activity 0 07/03/2020 Food Insecurity Answer Date Recorded Food 0 07/03/2020 Transportation Needs Answer Date Record ed Transportation 0 07/03/2020 Housing Stability Answer Date Recorded Housing 0 07/03/2020 Safety and Environment Answer Date David rded Safety 0 07/03/2020 Utilities Answer Date Recorded Utilities 0 07/03/2020 Employment Answer Date Recorded Employment 0 07/03/2020 Sex and Gender Information Value Date Recorded Sex Assigned at Not on file Legal Sex Male 8:58 AM PDT Gender Identity Not on file Sexual Orientation Not on file Plan of Treatment Health Maintenance Due Date Last Done Comments Diabetes Screening 1965 Hepatitis C Screening 1965 Lipid Screening 1965 Tobacco Screening 1965 HIV Screening 11/21/1978 Hypertension Screening (#1) 11/21/1981 CT Colonography 11/21/2008 Colonoscopy 11/21/2008 Colorectal Cancer Screening 11/21/2008 FIT/gFOBT 11/21/2008 Fecal DNA 11/21/2008 Flexible Sigmoidoscopy 11/21/2008 Imm-DTaP/Tdap/Td (2 - Td or Tdap) 12/24/2021 12/25/2011, 01/14/2008, 01/07/1997 [id number] ( - season) 2023 03/13/2021, 07/31/2020, 07/03/2020 Imm-Influenza (#1) 2023 01/02/2021, 1 04/24/2019, 02/04/2019, Additional history exists Alcohol and Drug Screen 03/31/2024 Depression Annual Screen 03/31/2024 Imm-Zoster, Recombinant Completed 04/27/2020, 02/22 Imm-Hepatitis B Aged Out No longer el igible based on patient's age to complete this topic Insurance [facility]
--- OUTSIDE RECORDS SUMMARY | 2024-05-26 18:58 | XMS_ITS | Encounter Summary ---
Author Organization [employer] [facility] Address [address] [facility] 7t [place] [address] Care Team Providers Care Lining Baster Name Role Phone [facility] Primary Care Provider [phone] Encounter Details Date Type Department Care Team (Latest Contact Info) Description 08/10/2020 Abstract [facility] Dental, Provider, DDS Social History Tobacco Use Types Packs/Day Years Used Date Smoking Tobacco: Never Assessed Sex and Gender Information Value Date Recorded [...] Description 05/31/2024 11:30 AM EST Clinical Support [facility] [address] [place] [address] documented as of this encounter Visit Diagnoses Not on filedocumented in this encounter Care Teams Lining Baster Relationship Specialty Start Date End Date Astrid Cohen [facility] [address] [place] [address] PCP - General Family Medicine 11/24/21 documented as of this encounter
--- OUTSIDE RECORDS SUMMARY | 2024-05-26 18:58 | XMS_ITS | Encounter Summary ---
Author Organization [employer] [facility] Address [address] [place] [address] 7 [place] [address] Care Team Providers Care Cook Mess Name Role Phone Astrid Cohen Primary Care Provider [phone] Reason for Referral * Medications - Closed Specialty Diagnoses / Procedures Referred By Dulce carbajal Referred To Contact Diagnoses Type 2 diabetes mellitus with hyperglycemia, without long-term current use of insulin ([facility]) Astrid Cohen FNP [address] [place] [address] Phone: tel: fax: Referral ID Status Reason Start Date Expiration Date Visits Re quested Visits Authorized [id number] Closed 1 1 * Consultation (Routine) - Authorized Specialty Diagnoses / Procedures Referred By Dulce carbajal Referred To Contact Gastroenterology Diagnoses Encounter for screening for malignant neoplasm of colon Astrid Cohen FNP [address] [place] [address] Phone: tel: fax: [facility] [address] [place] [address] Phone: tel: fax: Referral ID Status Reason Start Date Expiration Date Visits Requested Visits Authorized [id number] Authorized Specialty Services Required 05/14/2024 05/14/2025 1 1 Reason for Visit * Reason Comments Diabetes Encounter Details Date Type Department Care Team ([facility] st Contact Info) Description 05/14/2024 1:00 PM EST Office Visit [facility] [address] [place] [address] KiesterAstrid, SHUTTLE PREPARATION SUPERVISOR [address] [place] [address] Type 2 diabetes mellitus with hyperglycemia, with long-term current use of insulin (CMS/HCC) (Primary Dx); Mixed hyperlipidemia; Encounter for screening for malignant neoplasm of colon; Encounter for immunization; Dietary counseling; Exercise counseling; Class 1 obesity due to excess calories with serious comorbidity and body mass index (BMI) of 33.0 to 33.9 in adult Social History Tobacco Use Types Packs/Day Years Used Date Smoking Tobacco: Never Smokeless Tobacco: Never Tobacco Cessation:Counseling Given: Not Answered Alcohol Use Standard Drinks/Week Comments Never 0 [...] AM EDT documented as of this encounter Last Filed Vital Signs Vital Sign Reading Time Taken Comments Blood Pressure 135/72 05/14/2024 12:55 PM EST Pulse 80 05/14/2024 12:55 PM EST Temperature 36.4 ??C (97.6 ??F) 05/14/2024 12:[address] Respiratory Rate 20 05/14/2024 12:55 PM EST Oxygen Saturation 97% 05/14/2024 12:55 PM EST Inhaled Oxygen Concentration - - Weight 102 kg (225 lb) 05/14/2024 12:55 PM EST Height 175.3 cm (5' 9 ) 05/14/2024 12:55 PM EST Body Mass Index 33.23 05/14/2024 12:55 PM EST documented in this encounter Progress Notes * [facility], [facility] - 05/14/2024 1:00 PM EST SUBJECTIVE: Joaquim Luna is a 58 y.o. year old male with T2DM, HTN, CKD, HLD who presents for diabetes follow up .Denies recent illness, injury, or hospitalization. Acute Concerns: NOne Interim Updates: P1VE-hc last visit glipizide was stopped due to CKD and 4 units lispro was added to regimen before evening meal. Today reports tolerating well although persistent postprandial hyperglycemia. Social History Social History Narrative Current living environment: Lives alone Children: 0 Employment/Education: Disabled Tobacco Use: None Alcohol Use: None Marijuana Use: None Other drug use: None [employer] Sexually Active: No Partners are: AMAB Condoms: Always Patient Active Problem List Diagnosis Anxiety state Chondromalacia of left knee Chronic kidney disease (CKD), stage III (moderate) (CMS/HCC) DM2 (diabetes mellitus, type 2) (CMS/HCC) Mixed hyperlipidemia Hypertension Obesity Obstructive sleep apnea syndrome Palpitations Gouty arthritis of left great toe Healthcare maintenance Hypertriglyceridemia No past surgical history on file. No family history on file. Review of Systems Constitutional: Negative for activity change, diaphoresis, fatigue, fever and unexpected weight change. Eyes: Negative for visual disturbance. Respiratory: Negative for apnea, cough, chest tightness and shortness of breath. Cardiovascular: Negative for chest pain, palpitations and leg swelling. Gastrointestinal: Negative for abdominal pain and nausea. Neurological: Negative for dizziness, syncope, light-headedness and headaches. OBJECTIVE: Vitals: 05/14/24 1255 BP: 135/72 Pulse: 80 Resp: 20 Temp: 97.6 ??F (36.4 ??C) SpO2: 97% Physical Exam Constitutional: Appearance: Normal appearance. HENT: Head: Normocephalic. Right Ear: External ear normal. Left Ear: External ear normal. Nose: Nose normal. Eyes: Conjunctiva/sclera: Conjunctivae normal. Cardiovascular: Rate and Rhythm: Normal rate and regular rhythm. Heart sounds: Normal heart sounds. Pulmonary: Effort: Pulmonary effort is normal. Breath sounds: Normal breath sounds. Musculoskeletal: Right lower leg: No edema. Left lower leg: No edema. Skin: General: Skin is warm and dry. Capillary Refill: Capillary refill takes less than 2 seconds. Neurological: General: No focal deficit present. Mental Status: He is alert and oriented to person, place, and time. Psychiatric: Mood and Affect: Mood normal. Behavior: Behavior normal. ASSESSMENT/PLAN 1. Type 2 diabetes mellitus with hyperglycemia, with long-term current use of insulin ([facility]) (Primary) Lab Results Component Value Date HGBA1C 9.3 (A) 05/14/2024 HGBA1C 8.0 (A) 02/09/2024 HGBA1C 9.2 (A) 11/05/2023 Lab Results Component Value Date MICROALBUR 77.0 05/01/2023 CREATININE 2.18 (H) 02/12/2024 -Reviewed CGM log for the past month. CGM active 86%. In target range 32% with very high readings 39%. No low blood sugars. Persistent postprandial hyperglycemia over 250 around 6 PM. - Will switch from Trulicity to Mounjaro - Increase lispro to 6 units - Continue 10 units evening Lantus - RN CGM check in 2 weeks for additional insulin titration - Has glucose tabs for hypoglycemia - Eye Exam: [facility] yearly. UTD - Foot exam: 01/2024 Risk 0 - Statin: yes -- Unable to tolerate atorvastatin or rosuvastatin (CK elevation; liver enzyme elevation). OK on pravastatin - ASA: Yes - Anastacio/Arb: Yes - POCT HGB A1C - POCT Glucose - Albumin, Random Urine W/Creatinine; Future - Albumin, Random Urine W/Creatinine - Tirzepatide (Mounjaro) 5 MG/0.5ML solution auto-injector; Inject 5 mg under the skin 1 (one) timeper week. Dispense: 2 mL; Refill: 3 - insulin lispro (HumaLOG) 100 UNIT/ML injection; Inject 6 Units under the skin before evening meal. Dispense: 15 mL; Refill: 1 2. Mixed hyperlipidemia - Lipid Panel, Standard; Future - Lipid Panel, Standard 3. Encounter for screening for malignant neoplasm of colon - Referral to Gastroenterology; Future - Referral to Gastroenterology 4. Encounter for immunization - insulin lispro (HumaLOG) 100 UNIT/ML injection; Inject 6 Units under the skin before evening meal. Dispense: 15 mL; Refill: 1 5. Dietary counseling 6. Exercise counseling 7. Class 1 obesity due to excess calories with serious comorbidity and body mass index (BMI) of 33.0 to 33.9 in adult - Encouraged regular aerobic exercise within initial goal of 30 minute walk 3x/week - Encouraged balanced diet with a variety of fruits, vegetables, and lean meats. Follow Up: Current Outpatient Medications on File Prior to Visit Medication Sig Dispense Refill Acetaminophen Extra Strength 500 MG tablet TAKE 2 TABLETS BY MOUTH EVERY 8 HOURS NEEDED FOR MILDPAIN 100 tablet 1 Alcohol Swabs (Alcohol Prep) pads USE TO TEST BLOOD SUGAR TWICE DAILY 100 each 11 amLODIPine (Norvasc) 10 MG tablet TAKE 1 TABLET BY MOUTH EVERY EVENING 90 tablet 1 ammonium lactate (Lac-Hydrin) 12 % lotion Apply topically if needed for dry skin. 225 g 0 Aspirin Low Dose 81 MG EC tablet TAKE 1 TABLET BY MOUTH EVERY MORNING 90 tablet 1 Blood Glucose Monitoring Suppl (FoxwordyStyle Lite) device Inject under the skin if needed. Use as instructed Blood Pressure kit chlorthalidone (Hygroton) 25 MG tablet TAKE 1 TABLET BY MOUTH EVERY MORNING 90 tablet 1 Continuous Blood Gluc Electric Power Superintendent (FreeStyle Onelia 2 Roseboom) device Scan sensor every 8 hours 1 each 0 Continuous Glucose Sensor (FreeStyle Onelia 2 Sensor) misc USE DIRECTED CHANGE EVERY 14 DAYS 2 each 2 Diclofenac Sodium 1 % gel Apply 2 g topically 4 times daily. dulaglutide (Trulicity) 4.5 MG/0.5ML solution pen-injector Inject 4.5 mg under the skin 1 (one) time per week. 4 each 11 ezetimibe (Zetia) 10 MG tablet TAKE 1 TABLET BY MOUTH EVERY MORNING 90 tablet 3 ferrous sulfate (FeroSul) 325 (65 Fe) MG tablet TAKE 1 TABLET BY MOUTH EVERY OTHER DAY AT NOON (WITH A FULL GLASS OF WATER) 45 tablet 1 FLUoxetine (PROzac) 10 MG capsule TAKE 1 CAPSULE BY MOUTH EVERY MORNING 30 capsule 3 FREESTYLE LITE test strip TEST BLOOD SUGAR EVERY 8 HOURS 100 strip 3 glucose blood (FreeStyle Precision Kenneth Test) test strip Test blood sugar twice a day 100 each 11 hydrOXYzine HCl (Atarax) 10 MG tablet Take 1-2 tablets by mouth every 12 (twelve) hours if needed. Icosapent Ethyl (Vascepa) 1 g capsule Take 2 capsules (2 g) by mouth with breakfast and with evening meal. 120 capsule 11 insulin glargine (Lantus SoloStar) 100 UNIT/ML pen Inject 10 Units under the skin at bedtime. 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 Thank you! 15 mL 1 insulin lispro (HumaLOG) 100 UNIT/ML injection Inject 4 Units under the skin before evening meal. 15 mL 1 Jardiance 25 MG TAKE 1 TABLET BY MOUTH EVERY MORNING 30 tablet 11 lidocaine (Lidoderm) 5 % patch Apply 1 patch topically if needed each day for mild pain. Remove & discard patch within 12 hours or as directed by . 30 patch 3 metoprolol succinate XL (Toprol-XL) 200 MG 24 hr tablet TAKE 1 TABLET BY MOUTH EVERY MORNING 90 tablet 1 olmesartan (BENIcar) 40 MG tablet TAKE 1 TABLET BY MOUTH EVERY MORNING 90 tablet 3 pen needle 32G x 4 mm misc Use as instructed 100 each 12 pravastatin (Pravachol) 40 MG tablet Take 1 tablet (40 mg) by mouth in the evening. 30 tablet 11 TRUEplus Lancets 33G misc TEST BLOOD SUGAR EVERY 8 HOURS 100 each 3 [DISCONTINUED] metoprolol succinate XL (Toprol-XL) 200 MG 24 hr tablet TAKE 1 TABLET BY MOUTH EVERYMORNING 90 tablet 1 No current facility-administered medications on file prior to visit. Libyan Translation: Provided by [facility] staff member SHABBIR Nolan documented in this encounter Plan of Treatment Upcoming Encounters Date Type Department Care Team (Late st Contact Info) Description 05/31/2024 11:30 AM EST Clinical Support [facility] [address] [place] [address] Scheduled Referrals Name Type Priority Associated Diagnoses Order Schedule Referral to Gastroenterology Outpatient Referral Routine Encounter for screening for malignant neoplasm of colon Expected: 05/14/2024 (Approximate), Expires: 05/14/2025 documented as of this encounter Procedures Procedure Name Priority Date/Time Associated Diagnosis Comments ALBUMIN, RANDOM URINE W/CREATININE Routine 05/26/2024 3:24 PM EST Type 2 diabetes mellitus with hyperglycemia, with long-term current use of insulin ([facility]) LIPID PANEL, STANDARD Routine 05/26/2024 3:24 PM EST Mixed hyperlipidemia POCT GLYCATED HEMOGLOBIN, TOTAL Routine 05/14/2024 1:09 PM EST Type 2 diabetes mellitus with hyperglycemia, with long-term current use of insulin ([facility]) POCT GLUCOSE Routine 05/14/2024 1:09 PM EST Type 2 diabetes mellitus with hyperglycemia, with long-term current use of insulin ([facility]) documented in this encounter Results * (ABNORMAL) Lipid Panel, Standard (05/26/2024 3:24 PM EST) Triglycerides 404(H) <150 mg/dL [facility] Comment:Desirable Triglyceri de: less than 150 mg/dLBorderline High Triglyceride 150-199 mg/dLHigh Triglyceride: 200-499 mg/dLVery High Triglyceride: greater than or equal to 5OO mg/dL Cholesterol 202(H) <200 mg/dL [facility] Comment:Desirable Cholestero l: less than 200 mg/dLBorderline High Cholesterol: 200-239 mg/dLHigh Cholesterol: greater than 239 mg/dL LDL Cholesterol Calculated TNP <100 mg/dL [facility] Comment:Unable to calculate the LDL. The formula of Friedwald,Garcia, and Howie is only valid if the triglycerides areless than 400 mg/dl. HDL Cholesterol 38(L) >40 mg/dL [facility] Comment:Desirable HDL: great er than 40 mg/dL Note: This HDL assay may give artificially low results in patients with liver disease. Blood Venous blood specimen / Unknown 05/26/2024 3:24 PM EST 05/26/2024 4:14 PM EST [facility] LAB BLOOD ORDERABLES Final Re sult Performing Organization Address [facility] Co de Phone Number [facility] [address] [place] [phone] * Albumin, Random Urine W/Creatinine (05/26/2024 3:24 PM EST) Creatinine, Urine 94.81 mg/dL [facility] Microalbumin Urine 14.0 mg/L [facility] Microalbum Creatinine Ratio Ur 14.7 <30 ug/mg cr [facility] Comment:Albumin/Creatinine R atio Reference Ranges: Normal: < 30 ug/mg creatinine Microalbuminuria: 30 - 300 ug/mg creatinineClinical Albuminuria: > 300 ug/mg creatinine Urine 05/26/2024 3:24 PM EST 05/26/2024 4:20 PM EST [facility] LAB URINE ORDERABLES Final Re sult Performing Organization Address [facility]/ZIP Co de Phone Number [facility] [address] [place] [phone] * (ABNORMAL) POCT Glucose (05/14/2024 1:09 PM EST) Glucose Blood, POC 221(A) 60 - 200 mg/dL Blood Capillary blood specimen / Unknown 05/14/2024 1:09 PM EST [facility] POINT OF CARE TEST ENTER/EDIT ORDERABLES Final Result * (ABNORMAL) POCT HGB A1C (05/14/2024 1:09 PM EST) Hemoglobin A1C 9.3(A) 4.0 - 6.0 % Blood 05/14/2024 1:09 PM EST [facility] POINT OF CARE TEST ENTER/EDIT ORDERABLES Edited Result - Final documented in this encounter Visit Diagnoses Diagnosis Type 2 diabetes mellitus with hyperglycemia, with long-term current use of insulin ([facility])- Primary Mixed hyperlipidemia Encounter for screening for malignant neoplasm of colon Encounter for immunization Dietary counseling Dietary surveillance and counseling Exercise counseling Class 1 obesity due to excess calories with serious comorbidity and body mass index (BMI) of 33.0 to 33.9 in adult documented in this encounter Additional Health Concerns Assessment Noted Time PHQ-9 Depression Total Score: 0 05/14/19 25 1:08 PM EST documented as of this encounter Care Teams Cook Mess Relationship Specialty Start Date End Date Astrid Cohen [facility] [address] [place] [phone] PCP - General Family Medicine 11/24/21 documented as of this encounter
--- OUTSIDE RECORDS SUMMARY | 2024-05-26 18:58 | XMS_ITS | Encounter Summary ---
Author Organization [employer] Address [address] [place] [address] Care Team Providers Care It Corporate Recruiter Name Role Phone [facility] Primary Care Provider [phone] Reason for Visit * Reason Comments Med Refill Encounter Details Date Type Department Care Team (Late st Contact Info) Description 05/09/2024 Refill [facility] [address] [place], [place] [phone] [facility] [address] [place] [address] Primary hypertension Social History Tobacco Use Types Packs/Day Years [...] Description 05/31/2024 11:30 AM EST Clinical Support [facility] [address] [place] [address] documented as of this encounter Visit Diagnoses Diagnosis Primary hypertension Unspecified essential hypertension documented in this encounter Additional Health Concerns Assessment Noted Time PHQ-9 Depression Total Score: 0 12/26/19 23 2:50 PM EDT documented as of this encounter Care Teams It Corporate Recruiter Relationship Specialty Start Date End Date Astrid Cohen FNP [address] [place] [address] PCP - General Family Medicine 11/24/21 documented as of this encounter
--- OUTSIDE RECORDS SUMMARY | 2024-05-26 18:58 | XMS_ITS | Clinical Summary ---
Author Organization [facility] Address [address] [place] [address] Care Team Providers Care Christmas Tree Grader Name Role Phone Maycol Rothman NP Primary Care Provider [phone] Social History Tobacco Use Types Packs/Day Years Used Date Smoking Tobacco: Never Assessed Sex and Gender Information Value Date Recorded Sex Assigned at Not on file Legal Sex Male 9:04 AM EST Gender Identity Not on file Sexual Orientation Not on file Plan of Treatment Health Maintenance Due Date Last Done Comments DTaP,Tdap,and Td Vaccines (1 - Tdap) 11/21/1982 Zoster Vaccines (1 of 2) 11/21/2013 Pneumococcal Vaccine: 50+ Years (2 of 2 - PCV) 02/05/2020 02/04/2019 Cholesterol Screening (Lipid Panel) 03/13/2022 Colorectal Cancer Screening: Colonoscopy 03/13/2022 Depression Screening 03/13/2022 HIV Screening 03/13/2022 Hepatitis C Screening 03/13/2022 Social Influencers of Health Screening 03/13/2022 Hypertension/CHF/CAD Annual BMP Blood Test 03/16/2022 COVID-19 Vaccine (1 - 2023-2 5 season) 2023 Influenza Vaccine (#1) 2023 06/26/2018 RSV Immunization Patients 60 + Years Old (1 - 1-dose 75+ series) 11/21/2038 Pneumococcal Vaccine: Pediatrics (0 to 5 Years) and At-Risk Patients (6 to 64 Years) Aged Out 02/04/2019 No longer eligible b ased on patient's age to complete this topic HIB Vaccines Aged Out No longer eligi ble based on patient's age to complete this topic HPV Vaccines Aged Out No longer eligi ble based on patient's age to complete this topic Hepatitis A Vaccines Aged Out No long er eligible based on patient's age to complete this topic Hepatitis B Vaccines Aged Out No long er eligible based on patient's age to complete this topic IPV Vaccines Aged Out No longer eligi ble based on patient's age to complete this topic MMR Vaccines Aged Out No longer eligi ble based on patient's age to complete this topic Meningococcal ACWY Vaccine Aged Out N o longer eligible based on patient's age to complete this topic Meningococcal B Vacine Aged Out No lo nger eligible based on patient's age to complete this topic RSV Immunization Patients Under 20 months Aged Out No longer eligible b ased on patient's age to complete this topic Varicella Vaccines Aged Out No longer eligible based on patient's age to complete this topic Care Teams Christmas Tree Grader Relationship Specialty Start Date End Date Maycol Rothman NP [place], [place] PCP - General 09/28/10
--- OUTSIDE RECORDS SUMMARY | 2024-05-26 18:58 | XMS_ITS | Encounter Summary ---
Author Organization [email or web address] [facility] Address [address] [place] [address] Care Team Providers Care Interim Controller Name Role Phone [facility] Primary Care Provider [phone] Encounter Details Date Type Department Care Team (Latest Contact Info) Description 05/13/2019 Abstract [facility] CONVERSIONS Dental, Provider, DDS Social History Tobacco [...] Description 05/31/2024 11:30 AM EST Clinical Support [facility] [address] [place] [address] documented as of this encounter Visit Diagnoses Not on filedocumented in this encounter Care Teams Interim Controller Relationship Specialty Start Date End Date [place] AstridROSE [address] [place] [address] PCP - General Family Medicine 11/24/21 documented as of this encounter
--- OUTSIDE RECORDS SUMMARY | 2024-05-26 18:58 | XMS_ITS | Clinical Summary ---
Author Organization [employer] Address [address] [facility] [address] [place] [address] Care Team Providers Care Flight Engineer Performance Qualified Name Role Phone Astrid Cohen [facility] Primary Care Provider [phone] Allergies Active Allergy Reactions Criticality Noted Date Comments Atorvastatin 04/25/2010 Other reaction(s): elevated LFTs Simvastatin 04/25/2010 Other reaction(s): elevated CPK Medications hydrOXYzine HCl (Atarax) 10 MG tablet Take 1-2 tablets by mouth every 12 (twelve) hours if needed. 01/01/20 22 Active Blood Pressure kit Active Blood Glucose Monitoring Suppl (FreeStyle Lite) device Inject under the skin if needed. Use as instructed Active Diclofenac Sodium 1 % gel Apply 2 g topically 4 times daily. Active Icosapent Ethyl (Vascepa) 1 g capsuleIndication s:Hypertriglyceri demia Take 2 capsules (2 g) by mouth with breakfast and with evening meal. 120 capsule 11 07/27/19 23 Active lidocaine (Lidoderm) 5 % patchIndications: Inguinal strain, right, subsequent encounter Apply 1 patch topically if needed each day for mild pain. Remove & discard patch within 12 hours or as directed by MD. 30 patch 3 10/23/19 23 Active dulaglutide (Trulicity) 4.5 MG/0.5ML solution pen-injectorIndic ations:Type 2 diabetes mellitus with hyperglycemia, without long-term current use of insulin (CMS/HCC) Inject 4.5 mg under the skin 1 (one) time per week. 4 each 11 04/25/19 24 Active Acetaminophen Extra Strength 500 MG tabletIndications :Inguinal strain, right, subsequent encounter TAKE 2 TABLETS BY MOUTH EVERY 8 HOURS NEEDED FOR MILD PAIN 100 tablet 1 05/19/19 24 Active Jardiance 25 MGIndications:Typ e 2 diabetes mellitus with hyperglycemia, without long-term current use of insulin (CMS/[facility]) TAKE 1 TABLET BY MOUTH EVERY MORNING 30 tablet 05/30/19 24 Active Continuous Blood Gluc Professor Of Physical Education (FreeStyle Onelia 2 Mifflin) deviceIndications :Type 2 diabetes mellitus with hyperglycemia, without long-term current use of insulin (CMS/HCC) Scan sensor every 8 hours 1 each 06/03/19 24 Active glucose blood (FreeStyle Precision Kenneth Test) test strip Test blood sugar twice a day 100 each 11 06/18/19 24 2024 Active olmesartan (BENIcar) 40 MG tabletIndications :Hypertension, essential TAKE 1 TABLET BY MOUTH EVERY MORNING 90 tablet 3 06/18/19 24 Active ezetimibe (Zetia) 10 MG tabletIndications :Mixed hyperlipidemia TAKE 1 TABLET BY MOUTH EVERY MORNING 90 tablet 3 10/08/19 24 Active insulin glargine (Lantus SoloStar) 100 UNIT/ML penIndications:Ty pe 2 diabetes mellitus with hyperglycemia, without long-term current use of insulin (CMS/[facility]) Inject 10 Units under the skin at bedtime. Please provide teaching at pick up operator. Thank you! 15 mL 1 11/05/19 24 2024 Active Alcohol Swabs (Alcohol Prep) padsIndications:T ype 2 diabetes mellitus with hyperglycemia, without long-term current use of insulin (CMS/HCC) USE TO TEST BLOOD SUGAR TWICE DAILY 100 each 11 11/05/19 24 Active chlorthalidone (Hygroton) 25 MG tabletIndications :Primary hypertension TAKE 1 TABLET BY MOUTH EVERY MORNING 90 tablet 1 12/12/19 24 Active ferrous sulfate (FeroSul) 325 (65 Fe) MG tablet TAKE 1 TABLET BY MOUTH EVERY OTHER DAY AT NOON (WITH A FULL GLASS OF WATER) 45 tablet 1 12/12/19 24 Active amLODIPine (Norvasc) 10 MG tablet TAKE 1 TABLET BY MOUTH EVERY EVENING 90 tablet 1 12/12/19 24 Active Aspirin Low Dose 81 MG EC tablet TAKE 1 TABLET BY MOUTH EVERY MORNING 90 tablet 1 01/26/20 24 Active ammonium lactate (Lac-Hydrin) 12 % lotionIndications :Type 2 diabetes mellitus with hyperglycemia, without long-term current use of insulin (CMS/HCC) Apply topically if needed for dry skin. 225 g 02/09/20 24 2024 Active pravastatin (Pravachol) 40 MG tabletIndications :Type 2 diabetes mellitus with hyperglycemia, without long-term current use of insulin ([facility]) Take 1 tablet (40 mg) by mouth in the evening. 30 tablet 11 02/09/20 24 2024 Active pen needle 32G x 4 mm miscIndications:T ype 2 diabetes mellitus with hyperglycemia, without long-term current use of insulin ([facility]) Use as instructed 100 each 12 02/11/20 24 2024 Active Continuous Glucose Sensor (FreeStyle Onelia 2 Sensor) miscIndications:T ype 2 diabetes mellitus with hyperglycemia, without long-term current use of insulin ([facility]) USE DIRECTED CHANGE EVERY 14 DAYS 2 each 2 02/23/20 24 Active FLUoxetine (PROzac) 10 MG capsuleIndication s:Depression, unspecified depression type TAKE 1 CAPSULE BY MOUTH EVERY MORNING 30 capsule 3 03/05/20 24 Active TRUEplus Lancets 33G miscIndications:T ype 2 diabetes mellitus with hyperglycemia, without long-term current use of insulin ([facility]) TEST BLOOD SUGAR EVERY 8 HOURS 100 each 3 03/10/20 24 Active FREESTYLE LITE test stripIndications: Type 2 diabetes mellitus with hyperglycemia, without long-term current use of insulin ([facility]) TEST BLOOD SUGAR EVERY 8 HOURS 100 strip 3 03/10/20 24 Active metoprolol succinate XL (Toprol-XL) 200 MG 24 hr tabletIndications :Primary hypertension TAKE 1 TABLET BY MOUTH EVERY MORNING 90 tablet 1 05/10/19 25 Active Tirzepatide (Mounjaro) 5 MG/0.5ML solution auto-injectorIndi cations:Type 2 diabetes mellitus with hyperglycemia, with long-term current use of insulin ([facility]) Inject 5 mg under the skin 1 (one) time per week. 2 mL 3 05/19/19 25 Active insulin lispro (HumaLOG) 100 UNIT/ML injectionIndicati ons:Type 2 diabetes mellitus with hyperglycemia, with long-term current use of insulin (CMS/[facility]),Encount er for immunization Inject 6 Units under the skin before evening meal. 15 mL 1 05/19/19 25 Active metoprolol succinate XL (Toprol-XL) 200 MG 24 hr tabletIndications :Primary hypertension TAKE 1 TABLET BY MOUTH EVERY MORNING 90 tablet 1 11/10/19 24 2024 Discontinued insulin lispro (HumaLOG) 100 UNIT/ML injectionIndicati ons:Type 2 diabetes mellitus with hyperglycemia, without long-term current use of insulin ([facility]),Encount er for immunization Inject 4 Units under the skin before evening meal. 15 mL 1 02/11/20 24 2024 Discontinued Active Problems Problem Noted Date Diagnosed Date Hypertriglyceridemia 07/07/2022 Overview (05/01/2023): On zetia Unable to tolerate statin Icosapent ethyl PA submitted (pending) Assessment & Plan (05/01/2023 1:36 PM EST): ?? Will repeat FLP today and consider fibrate if indicated Healthcare maintenance 05/20/2022 Overview (10/10/2022): CRC: 2015, negative , repeat PSA:06/2022 .17 Vision: [place], [place] Dental: Discuss at f/u STi screening: Neg 01/2022 HIV: Neg 01/2022 Hepatitis: Neg 01/2022 Gouty arthritis of left great toe 02/19/2022 Overview (05/20/2022): - ?tophaceous - Flares occur approx 2x/year- left great toe and left knee - Uric acid 8.2mg 01/29/2022 - Not currently on urate lowering therapy Chondromalacia of left knee 02/07/2021 DM2 (diabetes mellitus, type 2) 07/29/2013 Overview (02/19/2024): Glipizide 5 mg ER-stopped (CKD) Metformin-Stopped (CKD) Jardiance 25mg Trulicity 4.5 mg Lantus 10 units nightly Lispro 4 units before dinner Maintenance: - Eye Exam: [facility] yearly. UTD - Foot exam: 01/2024 Risk 0 - Statin: yes -- Unable to tolerate atorvastatin or rosuvastatin (CK elevation; liver enzyme elevation). OK on pravastatin - ASA: Yes - Anastacio/Arb: Yes Encouraged regular aerobic exercise for improved glycemic control Encouraged daily foot checks Encouraged lean protein snacks and to avoid foods high in sugar and simple carbohydrates Treatment Goals: A1c goal: <7% FBG goal: <130 2 hour post prandial goal: <180 Assessment & Plan (06/03/2023 11:04 AM EST): - Patient has new glucometer. Confirmed accuracy with clinic POC BS <150. Patient reports he has stopped drinking soda since ED visit. Concern for brittle BS given high A1c incongruent with POC BS readings. Patient has been consistent with medications and reports home readings well controlled - will check Dm antibodies to confirm T2 - CGM PA pending - No med changes - Follow up 1 month Assessment & Plan (05/01/2023 1:31 PM EST): Lab Results Component Value Date HGBA1C 13.4 (H) 05/01/2023 ?? Suspect possible point of care testing error as patient has been consistent with medications and reports home readings < 200. Will confirm with venous blood draw ?? INCREASE Trulicity to 4.5mg subcutaneous ?? Foot exam complete today-Risk 0 ?? Will follow up pending updated labs Assessment & Plan (01/07/2023 10:02 AM EDT): Lab Results Component Value Date HGBA1C 9.0 (A) 12/25/2022 ?? A1c continuing to improve ?? INCREASE trulicity to 3.0mg ?? At follow up visit will consider discontinuing glipizide ER as I doubt it is having significant impact on BS given low dose Assessment & Plan (10/10/2022 2:05 PM EDT): Lab Results Component Value Date HGBA1C 9.8 (A) 09/25/2022 ?? A1c improving ?? INCREASE trulicity to 1.5mg SQ Assessment & Plan (07/07/2022 9:37 AM EDT): Lab Results Component Value Date HGBA1C 12.3 (A) 06/25/2022 ?? Improvement in A1c ?? Patient adamant that he is not interested in insulin or injectable medications at this time. He does not want to make any further medication adjustments but will instead focus on lifestyle recommendations. He agrees that if no significant improvement in A1c at follow up visit will start trulicity. Assessment & Plan (05/20/2022 9:41 AM EST): Lab Results Component Value Date HGBA1C >14.0 (H) 05/14/2022 ?? INCREASE glipizide to 5mg ER ?? RESTART jardiance 25mg daily ?? Pt is not interested in injectable medications at this time ?? Initial labs ordered-pending results will consider restarting metformin ?? Referral to medbox placed ?? Continue to work with [facility] nutrition Chronic kidney disease (CKD), stage III (moderat e) 07/22/2012 Overview (07/30/2023): Followed by [facility] Stage IIIb-baseline creatinine 1.7-1.9 Per nephrology no complement abnormality but slight increase in beta-2 globlin. Negative immunofixation. Positive EVANGELINA Assessment & Plan (06/03/2023 11:06 AM EST): Worsening Follow up as scheduled with nephrology Maintain hydration Avoid NSAIDS Mixed hyperlipidemia 07/22/2012 Overview (11/05/2023): Unable to tolerate multiple statin trials--elevated CK, myalgia Zetia 10mg daily Assessment & Plan (06/03/2023 11:05 AM EST): Fasting lipid elevated Intolerant of multiple statins (myalgia, elevated CK) Rachell hawthorne consult submitted--will contact patient for treatment plan pending consult Assessment & Plan (01/07/2023 10:03 AM EDT): ?? Repeat lipid panel today Assessment & Plan (10/10/2022 2:09 PM EDT): ?? START zetia 10mg daily. Reviewed administration, risks, side effects ?? Repeat lipid panel at follow up. If ASCVD >20% will quintero for PCSK9 PA Assessment & Plan (07/07/2022 9:43 AM EDT): ?? START omega 3 1000mg b.i.d for elevated triglycerides ?? Repeat fasting lipid panel at follow up, if persistent LDL elevation plan to add ezetimibe Anxiety state 09/13/2011 Overview (05/20/2022): ?? Prozac 10mg ?? Working with therapist Assessment & Plan (05/20/2022 9:36 AM EST): ?? Well controlled with medication and therapy ?? Continue current regimen. Contact HC if sx worsen or experiencing thoughts of SI or self harm Hypertension 09/13/2011 Overview (04/25/2023): ?? Olmesartan 40mg daily ?? Amlodipine 10mg ?? Metoprolol 100mg ER ?? Chlorthalidone 25 mg daily Maintenance: BMP: 05/2022 Lipid Panel: 05/2022 ASCVD Risk: >20% EKG: Obtain baseline at f/u - Aerobic exercise to reduce BP. Initial goal of 30 min walk 3-5x/week. Increase as tolerated. - low-sodium diet (goal: <2g/day) and heart healthy diet such as DASH to reduce BP and prevent ASCVD. - Home BP monitoring 1-2 x day with goal of <140/90. - Seek immediate medical attention for chest pain, palpitations, SOB, syncope, or sudden changes in mental status. - Do not change or discontinue current prescriptions without first consulting health care provider Assessment & Plan (05/01/2023 1:33 PM EST): Well controlled Continue current regimen Assessment & Plan (01/07/2023 10:04 AM EDT): ?? BP elevated ?? INCREASE chlorthalidone to 25mg once daily ?? RN BP check 2 weeks with repeat BMP at this time Assessment & Plan (10/10/2022 2:08 PM EDT): ?? Continue current regimen Assessment & Plan (07/07/2022 9:39 AM EDT): ?? START chlorthalidone 12.5mg ?? Continue other medications as prescribed ?? RN BP check 2 weeks with repeat BMP and fasting lipid panel Assessment & Plan (05/20/2022 9:42 AM EST): ?? INCREASE olmesartan to 40mg b.i.d Obesity 09/13/2011 Obstructive sleep apnea syndrome 09/13/2011 Palpitations 04/14/2011 Encounters Date Type Department Care Team Description 05/26/[address] [facility] [address] [place] [address] Astrid Cohen FNP Type 2 diabetes mellitus with hyperglycemia, without long-term current use of insulin (CMS/HCC) 05/14/2024 1:00 PM EST Office Visit [facility] [place] [address] Astrid Cohen FNP Type 2 diabetes mellitus with hyperglycemia, with long-term current use of insulin (CMS/HCC) (Primary Dx); Mixed hyperlipidemia; Encounter for screening for malignant neoplasm of colon; Encounter for immunization; Dietary counseling; Exercise counseling; Class 1 obesity due to excess calories with serious comorbidity and body mass index (BMI) of 33.0 to 33.9 in adult 05/14/2024 Travel 05/09/[address] [facility] [place] [address] Astrid Cohen FNP Primary hypertension 05/03/2024 Patient Outreach [facility] [address] Astrid Cohen FNP Pre-visit Planning (SDOH screening negative and tobacco screening negative) 03/08/[address] [facility] [address] Astrid Cohen FNP Type 2 diabetes mellitus with hyperglycemia, without long-term current use of insulin (CMS/HCC) 03/05/[address] [facility] [place] [address] Aviva Alexander MD Depression, unspecified depression type from Last 3 Months Immunizations Name Administration Dates Next Due HepB-CpG 08/15/2022,06/13/2022 Influenza Injectable Quadriv alant Preservative Free IIV4 MDCK 12/31/2021,02/23/2020 Influenza injectable quadriv alent IIV4 with preservative 02/04/2017,03/01/2016,03/17/2015 Influenza injectable quadriv alent preservative free 12/25/2022,01/02/2021,02/04/2019,06/26 Influenza, High Dose Seasona l, Preservative Free 11/29/2014 Influenza, IIV3, injectable 01/04/2014, 1 Influenza, Injectable, MDCK, preservative free 12/31/2023 Influenza, Split (incl. anjana fied surface antigen) 12/28/2012,12/25/2011 MMR 09/02/2005 Moderna Covid-19 Vaccine 12+ 09/13/2021, 03/13/2021,07/31/2020,07/03 Pfizer Covid-19 Vaccine 12+ 02/09/2024, 4 Pneumococcal Conjugate PCV 20 06/13/2022 Pneumococcal Conjugate PCV 7 11/25/2008 Pneumococcal Polysaccharide PPSV23 02/04/2019, TD (adult), 2 Lf tetanus tox oid, preservative free, adsorbed 01/14/2008,01/07/1997 Tdap 06/13/2022,12/25/2011 Zoster, Recombinant 04/27/2020,02/23/2020 Zoster, live 04/27/2020,02/23/2020 Social History Tobacco Use Types Packs/Day Years [...] not to disclose 2021 10:14 AM EDT Last Filed Vital Signs Vital Sign Reading [...] Mass Index 33.23 05/14/2024 12:55 PM EST Plan of Treatment Upcoming Encounters Date Type Department Care Team (Late st Contact Info) Description 05/31/2024 11:30 AM EST Clinical Support [facility] [address] [place] [address] Health Maintenance Due Date Last Done Comments CT Colonography 1963 FIT DNA/Cologuard 1963 FIT 1963 FOBT 1963 Sigmoidoscopy 1963 Alcohol/Substance Use Screening 1975 RSV Patients and Patients Aged 60 years or older (1 - Risk 60-74 years 1-dose series) 2023 Diabetes: Urine Protein Screening 05/01/2024 05/26/2024, 05/01/2023, 09/13/2021, Additional history exists Diabetes: Hemoglobin A1C 08/11/2024 025, 02/09/2024, 11/05/2023, Additional history exists Colonoscopy 08/30/2024 08/30/2014 Colorectal Cancer Screening 08/30/2024 Lipid Panel 11/11/2024 05/26/2024, 10/29, 05/01/2023, Additional history exists Diabetes: Foot Exam 02/08/2025 02/09/2024, 02/09/2024, 04/25/2023, Additional history exists SDOH Screening 05/03/2025 05/03/2024 Depression Screening 05/14/2025 05/14/2024, 05/14/19 25 Tobacco Screening 05/20/2025 05/20/2024 Eye Exam 07/22/2025 07/23/2023, 03/31/2021 DTaP/Tdap/Td Vaccines (3 - Td or Tdap) 06/13/2032 06/13/2022, 12/25/2011, 01/14/2008, Additional history exists Zoster Vaccines Completed 04/27/2020, 04/01, 02/23/2020, Additional history exists HIV Screening Completed 01/29/2022 Pneumococcal Vaccine: 50+ Years Completed 06/13/2022, 02/04/2019, 11/25/2008, Additional history exists Hepatitis B Vaccines Completed 08/15/2022, 06/14/19 23 Influenza Vaccine Completed 12/31/2023, , 12/31/2021, Additional history exists COVID-19 Vaccine Completed 02/09/2024, , 12/31/2021, Additional history exists HIB Vaccines Aged Out No longer eligi ble based on patient's age to complete this topic HPV Vaccines Aged Out No longer eligi ble based on patient's age to complete this topic Hepatitis A Vaccines Aged Out No long er eligible based on patient's age to complete this topic Hepatitis C Screening Discontinued IPV Vaccines Aged Out No longer eligi ble based on patient's age to complete this topic Meningococcal Vaccine Aged Out No oscar parveen eligible based on patient's age to complete this topic RSV under 20 months Aged Out No longe r eligible based on patient's age to complete this topic Rotavirus Vaccines Aged Out No longer eligible based on patient's age to complete this topic Procedures Procedure Name Priority Date/Time Associated Diagnosis Comments LIPID PANEL, STANDARD Routine 05/26/2024 3:24 PM EST Mixed hyperlipidemia ALBUMIN, RANDOM URINE W/CREATININE Routine 05/26/2024 3:24 PM EST Type 2 diabetes mellitus with hyperglycemia, with long-term current use of insulin ([facility]) POCT GLUCOSE Routine 05/14/2024 1:09 PM EST Type 2 diabetes mellitus with hyperglycemia, with long-term current use of insulin ([facility]) POCT GLYCATED HEMOGLOBIN, TOTAL Routine 05/14/2024 1:09 PM EST Type 2 diabetes mellitus with hyperglycemia, with long-term current use of insulin ([facility]) HIV 1/2 ANTIGEN/ANTIBODY, FOURTH GENERATION W/RFL Routine 01/29/2022 3:31 PM EDT HM COLONOSCOPY Routine 08/30/2014 8:56 AM EDT from Last 3 Months or Most Recently Relevant to Health Maintenance Results * Albumin, Random Urine W/Creatinine (05/26/2024 3:24 PM EST) Creatinine, Urine 94.81 mg/dL [facility] Microalbumin Urine 14.0 mg/L [facility] Microalbum Creatinine Ratio Ur 14.7 <30 ug/mg cr [facility] Comment:Albumin/Creatinine R atio Reference Ranges: Normal: < 30 ug/mg creatinine Microalbuminuria: 30 - 300 ug/mg creatinineClinical Albuminuria: > 300 ug/mg creatinine Urine 05/26/2024 3:24 PM EST 05/26/2024 4:20 PM EST [facility] URINE ORDERABLES Final Re sult Performing Organization Address [facility]/ZIP Co de Phone Number [facility] [address] [place] [phone] * (ABNORMAL) Lipid Panel, Standard (05/26/2024 3:24 PM EST) Triglycerides 404(H) <150 mg/dL [facility] Comment:Desirable Triglyceri de: less than 150 mg/dLBorderline High Triglyceride 150-199 mg/dLHigh Triglyceride: 200-499 mg/dLVery High Triglyceride: greater than or equal to 5OO mg/dL Cholesterol 202(H) <200 mg/dL [facility] Comment:Desirable Cholestero l: less than 200 mg/dLBorderline High Cholesterol: 200-239 mg/dLHigh Cholesterol: greater than 239 mg/dL LDL Cholesterol Calculated TNP <100 mg/dL [facility] Comment:Unable to calculate the LDL. The formula of Friedwald,Garcia, and Howie is only valid if the triglycerides areless than 400 mg/dl. HDL Cholesterol 38(L) >40 mg/dL [facility] Comment:Desirable HDL: great er than 40 mg/dL Note: This HDL assay may give artificially low results in patients with liver disease. Blood Venous blood specimen / Unknown 05/26/2024 3:24 PM EST 05/26/2024 4:14 PM EST [facility] LAB BLOOD ORDERABLES Final Re sult Performing Organization Address [facility]/ZIP Co de Phone Number [facility] [address] [place] [phone] * (ABNORMAL) POCT HGB A1C (05/14/2024 1:09 PM EST) Pathologist [facility] Hemoglobin A1C 9.3(A) 4.0 - 6.0 % Blood 05/14/2024 1:09 PM EST Result [facility] POINT OF CARE TEST ENTER/EDIT ORDERABLES Edited Result - Final * (ABNORMAL) POCT Glucose (05/14/2024 1:09 PM EST) Pathologist [facility] Glucose Blood, POC 221(A) 60 - 200 mg/dL Blood Capillary blood specimen / Unknown 05/14/2024 1:09 PM EST Result [facility] POINT OF CARE TEST ENTER/EDIT ORDERABLES Final Result * HIV 1/2 ANTIGEN/ANTIBODY,FOURTH GENERATION W/RFL (01/29/2022 3:31 PM EDT) [facility] HIV-1/2 ANTIGEN AND ANTIBODIES, 4TH GENERATION W/ REFLEX NON-REACT KRYSTLE NON-REACT KRYSTLE [facility] Comment: HIV-1 antigen and HIV-1/HIV-2 antibodies were not detected. There is no laboratory evidence of HIV infection. ?? PLEASE NOTE: This information has been disclosed to you from records whose confidentiality may be protected by state law. ??If your state requires such protection, then the state law prohibits you from making any further disclosure of the information without the specific written consent of the person to whom it pertains, or as otherwise permitted by law. A general authorization for the release of medical or other information is NOT sufficient for this purpose. ? For additional information please refer to http://education.[employer]/faq/OJS415 (This link is being provided for informational/ educational purposes only.) ? The performance of this assay has not been clinically validated in patients less than 2 years old. ?? 01/29/2022 3:31 PM EDT Result [facility] BLOOD ORDERABLES Final Re sult [facility] * Hm Colonoscopy (08/30/2014 8:56 AM EDT) us Historical Provider MD HEALTH MAINTENANCE Final Result from Last 3 Months or Most Recently Relevant to Health Maintenance Insurance Care Teams Flight Engineer Performance Qualified Relationship Specialty Start Date End Date Astrid Cohen FNP [address] [place] [phone] PCP - General Family Medicine 11/24/21
== END 2024-05-26 15:22 | disposition home or self-care (01) ==
LOC: HO.HHCL 15:21
PROVIDERS: Visit Provider Registered Nurse
DX: E78.2 Mixed hyperlipidemia (principal); E11.65 Type 2 diabetes mellitus with hyperglycemia
CPT/HCPCS: 36415; 80061; 82043; 82570

== ENCOUNTER 2024-09-21 14:37 | Outpatient (REF) | payer OTHER, SELFPAY ==
--- NOTE | ~2024-09-21 | XR_ITS ---
EXAMINATION: XR KNEE, LEFT CLINICAL INFORMATION: pain COMPARISON: December 26, 2020. TECHNIQUE: AP and lateral views of the left knee. FINDINGS: No acute cortical disruption or malalignment. No lytic or blastic lesions. Mild joint space narrowing compartment. No suprapatellar bursa joint effusion. XR/XR knee LT 3V IMPRESSION: Mild medial compartment osteoarthrosis. Electronically signed by: Boston Beverly MD 09/21/2024 03:03 PM EDT
--- OUTSIDE RECORDS SUMMARY | 2024-09-21 14:40 | XMS_ITS | Encounter Summary ---
Author Organization [employer] Address [address] [place] [address] Care Team Providers Care Extension Service Advisor Name Role Phone Astrid Cohen [facility] Primary Care Provider [phone] Masha Mckeon PharmD Unavailable [phone] Reason for Referral * Consultation (Routine) - Pending Review Specialty Diagnoses / Procedures Referred By Dulce carbajal Referred To Contact Orthopaedic Surgery Diagnoses Acute pain of left knee Sarina Bush MD [address] [place] [address] Phone: tel: fax: Referral ID Status Reason Start Date Expiration Date Visits Requested Visits Authorized [id number] Pending Review Specialty Services Required 09/21/2024 09/21/2025 1 1 * Medications - Closed Specialty Diagnoses / Procedures Referred By Dulce carbajal Referred To Contact Diagnoses Acute pain of left knee Sarina Bush MD [address] [place] [address] Phone: tel: fax: Referral ID Status Reason Start Date Expiration Date Visits Re quested Visits Authorized [id number] Closed 1 1 Reason for Visit * Reason Comments Knee Pain Encounter Details Date Type Department Care Team (Late st Contact Info) Description 09/21/2024 2:40 PM EDT Office Visit [facility] [address] [place] [address] Sarina Bush MD [address] [place] [address] Acute pain of left knee Social History Tobacco Use Types Packs/Day Years [...] Sign Reading Time Taken Comments Blood Pressure 130/76 09/21/2024 2:20 PM EDT Pulse 77 09/21/2024 2:20 PM EDT Temperature 36.4 C (97.6 F) 09/21/2024 2:20 PM EDT Respiratory Rate 16 09/21/2024 2:20 PM EDT Oxygen Saturation 97% 09/21/2024 2:20 PM EDT Inhaled Oxygen Concentration - - Weight 99.1 kg (218 lb 6.4 oz) 09/21/2024 2:20 P M EDT Height - - Body Mass Index 32.25 05/14/2024 12:55 PM EST documented in this encounter Progress Notes * Sarina Blood MD - 09/21/2024 2:40 PM EDT SUBJECTIVE: Joaquim Luna is a 58 y.o. year old male who presents for knee pain . Acute Concerns: Patient reports he has been having pain located on his left knee, he reports he has not had this pain before but it went away and now he has been having it for the past 3 weeks, reports he has been seen for this before and was told he has arthritis of his knee, patient denies any triggering activity or trauma Social History Social History Narrative Current living environment: Lives alone Children: 0 Employment/Education: Disabled Tobacco Use: None Alcohol Use: None Marijuana Use: None Other drug use: None [employer] Sexually Active: No Partners are: [employer]AB Condoms: Always Problem List[1] Anxiety state Chondromalacia of left knee Chronic kidney disease (CKD), stage III (moderate) (CMS/HCC) DM2 (diabetes mellitus, type 2) ([facility]) Mixed hyperlipidemia Hypertension Obesity Obstructive sleep apnea syndrome Palpitations Gouty arthritis of left great toe Healthcare maintenance Hypertriglyceridemia Acute pain of left knee Family History[2] Review of Systems Constitutional: Negative. HENT: Negative. Respiratory: Negative. Cardiovascular: Negative. Musculoskeletal: Positive for arthralgias. OBJECTIVE: Vitals: 09/21/24 1420 BP: 130/76 BP Location: Left arm Patient Position: Sitting BP Cuff Size: Adult Pulse: 77 Resp: 16 Temp: 97.6 ??F (36.4 ??C) TempSrc: Temporal SpO2: 97% Weight: 218 lb 6.4 oz (99.1 kg) Physical Exam Constitutional: Appearance: Normal appearance. Cardiovascular: Rate and Rhythm: Normal rate and regular rhythm. Pulmonary: Effort: Pulmonary effort is normal. Breath sounds: Normal breath sounds. Abdominal: General: Abdomen is flat. Palpations: Abdomen is soft. Musculoskeletal: Left knee: Tenderness present over the medial joint line and patellar tendon. Neurological: Mental Status: He is alert. Follow Up: No follow-ups on file. Medications Ordered Prior to Encounter[3] Problem List Items Addressed This Visit Acute pain of left knee I advised to elevate his knee put some ice and rest I will prescribe for patient prednisone in light of his history of CKD I also prescribed for him some lidocaine patches that he can apply locally I ordered an x-ray patient will be contacted with results I refer patient to orthopedic orthopedics as per his request Relevant Medications predniSONE (Deltasone) 10 MG tablet lidocaine (Lidoderm) 5 % patch Other Relevant Orders XR Knee 3 Views Left (Completed) Referral to Orthopaedic Surgery [1] Patient Active Problem List Diagnosis Anxiety state Chondromalacia of left knee Chronic kidney disease (CKD), stage III (moderate) (CMS/HCC) DM2 (diabetes mellitus, type 2) (CMS/HCC) Mixed hyperlipidemia Hypertension Obesity Obstructive sleep apnea syndrome Palpitations Gouty arthritis of left great toe Healthcare maintenance Hypertriglyceridemia Acute pain of left knee [2] No family history on file. [3] Current Outpatient Medications on File Prior to [...] 90 tablet 1 Blood Glucose Monitoring Suppl (Enevateyle Lite) device Inject under the skin if needed. Use as instructed Blood Pressure kit chlorthalidone (Hygroton) 25 MG tablet TAKE 1 TABLET BY MOUTH EVERY MORNING 90 tablet 1 Continuous Blood Gluc [facility] (Yik Yak Onelia 2 Mohawk) device Scan sensor every 8 hours 1 each 0 Continuous Glucose Sensor (FreeStyle Onelia 2 Sensor) [facility] USE DIRECTED TO TEST BLOOD SUGAR CHANGE EVERY 14 DAYS 2 each 2 Diclofenac Sodium 1 % gel Apply 2 g topically 4 times daily. ezetimibe (Zetia) 10 MG tablet TAKE 1 TABLET BY MOUTH EVERY MORNING 90 tablet 3 fenofibrate (Tricor) 48 MG tablet Take 1 tablet (48 mg) by mouth Once per day. 30 tablet 11 Ferrous Sulfate (iron) 325 (65 Fe) MG tablet TAKE 1 TABLET BY MOUTH EVERY OTHER DAY AT NOON 45 tablet 1 FLUoxetine (PROzac) 10 MG capsule TAKE 1 CAPSULE BY MOUTH EVERY MORNING 30 capsule 3 FREESTYLE LITE test strip TEST BLOOD SUGAR EVERY 8 HOURS 100 strip 3 hydrOXYzine HCl (Atarax) 10 MG tablet Take 1-2 tablets by mouth every 12 (twelve) hours if needed. insulin lispro (HumaLOG) 100 UNIT/ML injection Inject 6 Units under the skin before evening meal. 15 mL 1 Jardiance 25 MG TAKE 1 TABLET BY MOUTH EVERY MORNING 30 tablet 11 Lantus SoloStar 100 UNIT/ML pen INJECT 10 UNITS SUBCUTANEOUSLY AT BEDTIME 15 mL 1 lidocaine (Lidoderm) 5 % patch Apply 1 patch topically if needed each day for mild pain. Remove & discard patch within 12 hours or as directed by MD. 30 patch 3 metoprolol succinate XL (Toprol-XL) 200 MG 24 hr tablet TAKE 1 TABLET BY MOUTH EVERY MORNING 90 tablet 1 olmesartan (BENIcar) 40 MG tablet TAKE 1 TABLET BY MOUTH EVERY MORNING 90 tablet 3 omega-3 acid ethyl esters (Lovaza) 1 g capsule Take 1 capsule (1 g) by mouth 2 times daily. 60 capsule 11 pen needle 32G x 4 mm misc Use as instructed 100 each 12 pravastatin (Pravachol) 40 MG tablet Take 1 tablet (40 mg) by mouth in the evening. 30 tablet 11 Tirzepatide (Mounjaro) 7.5 MG/0.5ML solution auto-injector Inject 7.5 mg under the skin 1 (one) time per week. 2 mL 2 TRUEplus Lancets 33G misc TEST BLOOD SUGAR EVERY 8 HOURS DIRECTED 100 each 5 No current facility-administered medications on file prior to visit. documented in this encounter Miscellaneous Notes * Assessment & Plan Note - Sarina Blood MD - 09/21/2024 4:01 PM EDT Associated Problem(s): Acute pain of left knee I advised to elevate his knee put some ice and rest I will prescribe for patient prednisone in light of his history of CKD I also prescribed for him some lidocaine patches that he can apply locally I ordered an x-ray patient will be contacted with results I refer patient to orthopedic orthopedics as per his request documented in this encounter Plan of Treatment Upcoming Encounters Date Type Department Care Team (Late st Contact Info) Description 2024 1:00 PM EDT Medication Management [facility] [address] [place] [address] Masha Mckeon, PharmD [address], [place] [phone] Scheduled Referrals Name Type Priority Associated Diagnoses Order Schedule Referral to Orthopaedic Surgery Outpatient Referral Routine Acute pain of left knee Expected: 09/21/2024 (Approximate), Expires: 09/21/2025 documented as of this encounter Procedures Procedure Name Priority Date/Time Associated Diagnosis Comments XR KNEE 3 VIEWS LEFT Routine 09/21/2024 3:00 PM EDT Acute pain of left knee documented in this encounter Results * XR Knee 3 Views Left (09/21/2024 3:00 PM EDT) Anatomical Region Laterality Modality Lower Extremities, Knee Left [facility] 09/21/2024 3:00 PM EDT Narrative 09/21/2024 3:06 PM EDT [address] [address] XRay Report Signed Patient: Joaquim Luna MR#: [id number] : 1965 Acct:[id number] Age/Sex: 58 / M ADM Date: 09/21/24 [facility] Att[facility]: Sarina Blood MD Ordering Physician: Sarina Bush MD Date of Service: 09/21/24 Procedure(s): XR knee LT 3V Accession Number(s): [id number] cc: Sarina Bush MD EXAMINATION: XR KNEE, LEFT CLINICAL INFORMATION: pain COMPARISON: December 26, 2020. TECHNIQUE: AP and lateral views of the left knee. FINDINGS: No acute cortical disruption or malalignment. No lytic or blastic lesions. Mild joint space narrowing compartment. No suprapatellar bursa joint effusion. XR/XR knee LT 3V IMPRESSION: Mild medial compartment osteoarthrosis. Electronically signed by: Boston Beverly MD 09/21/2024 03:03 PM EDT Dictated By: Boston Drummond MD Signed By: <Electronically signed by Boston Daniel MD in OV> 09/21/24 1503 DD/ 1500 TD/TT: 09/21/24 1500 Building Service Worker: Procedure Note Donotuseinterpreter, Image - 09/21/[address] [address] XRay Report Signed Patient: Mckayla Luna#: [id number] : 1965Acct:[id number] Age/Sex: 58 / MADM Date: 09/21/24 Loc: HO.[facility] Attending Dr: Sarian Blood MD Ordering Physician: Sarina Bush MD Date of Service: 09/21/24 Procedure(s): XR knee LT 3V Accession Number(s): [id number] cc: Sarina Bush MD EXAMINATION: XR KNEE, LEFT CLINICAL INFORMATION: pain COMPARISON: December 26, 2020. TECHNIQUE: AP and lateral views of the left knee. FINDINGS: No acute cortical disruption or malalignment. No lytic or blastic lesions. Mild joint space narrowing compartment. No suprapatellar bursa joint effusion. XR/XR knee LT 3V IMPRESSION: Mild medial compartment osteoarthrosis. Electronically signed by: Boston Beverly MD 09/21/2024 03:03 PM EDT RP Dictated By: Boston Drummond MD Signed By: <Electronically signed by Boston Daniel MDin OV> 09/21/24 1503 DD/ 1500 TD/TT: 09/21/24 1500 Building Service Worker: Sarina Blood MD IMG XR PROCEDURES Fin al Result documented in this encounter Visit Diagnoses Diagnosis Acute pain of left knee documented in this encounter Additional Health Concerns Assessment Noted Time PHQ-9 Depression Total Score: 0 05/14/19 1:08 PM EST documented as of this encounter Care Teams Extension Service Advisor Relationship Specialty Start Date End Date Astrid Cohen FNP [address] [place] [address] PCP - General Family Medicine 11/24/21 Masha Mckeon PharmD [address] [place] [address] Pharmacist Internal Medicine 07/26/24 documented as of this encounter
== END 2024-09-21 14:38 | disposition home or self-care (01) ==
LOC: HO.HHCX 14:37
PROVIDERS: Visit Provider Internal Medicine
DX: M25.562 Pain in left knee (principal)
CPT/HCPCS: 73562

== ENCOUNTER → 2024-09-21 14:37 | Outpatient (BNV) | payer OTHER, SELFPAY | PROVIDERS: Visit Provider Radiology Diagnostic Radiology | DX: M25.562 Pain in left knee (principal) | CPT/HCPCS: 73562 ==

== ENCOUNTER 2025-03-21 08:19 | Outpatient (REF) | payer OTHER, SELFPAY ==
--- OUTSIDE RECORDS SUMMARY | 2025-03-21 08:30 | XMS_ITS | Encounter Summary ---
Author Organization [facility] Address [address] [place] [address] Phone Care Team Providers Care Information Architect Name Role Phone [facility] Primary Care Provider [phone] Encounter Details Date Type Department Care Team (Late st Contact Info) Description 09/12/2021 Documentation Only [facility] [address] [place] [address] Ernie Rucker PA [address] [place] [address] Social History Tobacco Use Types Packs/Day Years [...] Department Care Team (Late Contact Info) Description 04/12/2025 2:50 PM EST Office Visit [facility] [address] [place] [place] [address] Sher Haddad MD [address] [place] [address] documented as of this encounter Visit Diagnoses Not on filedocumented in this encounter Care Teams Information Architect Relationship Specialty Start Date End Date [facility] [address] [place] [address] [phone] PCP - General 05/06/23 documented as of this encounter
--- OUTSIDE RECORDS SUMMARY | 2025-03-21 08:30 | XMS_ITS | Encounter Summary ---
Author Organization [employer] [facility] Address [address] [place] [address] Care Team Providers Care Contract Serviceman Name Role Phone [facility] Primary Care Provider [phone] Masha Mckeon PharmD Unavailable [phone] Reason for Visit * Reason Comments Med Refill Encounter Details Date Type Department Care Team (Late st Contact Info) Description 06/09/2022 Refill [facility] [address] [place] [id number] [facility] [address] [place] [address] Social History Tobacco Use Types Packs/Day Years [...] Care Team (Late st Contact Info) Description 04/11/2025 1:30 PM EST Medication Management [facility] [address] [place] [address] Masha Mckeon, Florentino [address] [place] [address] 06/30/2025 2:00 PM EDT Office Visit [facility] [address] [place], [place] [phone] Tarka Oneida, OD [address] [place], [place] [phone] documented as of this encounter Visit Diagnoses Not on filedocumented in this encounter Additional Health Concerns Assessment Noted Time PHQ-9 Depression Total Score: 0 05/14/19 23 2:36 PM EST documented as of this encounter Care Teams Contract Serviceman Relationship Specialty Start Date End Date Astrid Cohen FNP [address] [place] [id number] PCP - General Family Medicine 11/24/21 Masha Mckeon, Florentino [address] [place] [address] [phone] Pharmacist Internal Medicine 07/26/24 documented as of this encounter
--- OUTSIDE RECORDS SUMMARY | 2025-03-21 08:30 | XMS_ITS | Encounter Summary ---
Author Organization [facility] Address [address] [place] [address] Phone Care Team Providers Care Machine Long Goods Helper Name Role Phone [facility] Primary Care Provider [phone] Encounter Details Date Type Department Care Team (Late st Contact Info) Description 05/21/2023 Documentation Only [facility] [address] [place] [address] Sau[address]Radha [address] [place] [address] Social History Tobacco Use Types [...] Care Team (Late st Contact Info) Description 04/12/2025 2:50 PM EST Office Visit [facility] [address] [place] [address] Sher Haddad MD [address] [place] [address] [place] [address] documented as of this encounter Visit Diagnoses Not on filedocumented in this encounter Care Teams Machine Long Goods Helper Relationship Specialty Start Date End Date [facility] [address] [place], [place] [phone] PCP - General 05/06/23 documented as of this encounter
--- OUTSIDE RECORDS SUMMARY | 2025-03-21 08:30 | XMS_ITS | Encounter Summary ---
Author Organization [facility] Address [address] [place] [address] Phone Care Team Providers Care Lecturer In Marketing Name Role Phone [facility] Primary Care Provider Reason for Visit * Reason Comments Med Refill Encounter Details Date Type Department Care Team (Late Contact Info) Description 09/28/2022 Refill [facility] [address] [place] [address] Ernie Rucker PA [address] [place] [address] Social History Tobacco Use Types [...] Visit [facility], [address] [place] [address] Sher Haddad MD [address] [place] [address] documented as of this encounter Visit Diagnoses Not on filedocumented in this encounter Care Teams Lecturer In Marketing Relationship Specialty Start Date End Date [facility] [address] [place] [id number] PCP - General 05/06/23 documented as of this encounter
--- OUTSIDE RECORDS SUMMARY | 2025-03-21 08:30 | XMS_ITS | Encounter Summary ---
Author Organization [employer] Address [address] [facility] 7t [place] [address] Care Team Providers Care Continuous Miner Operator Name Role Phone [facility] Primary Care Provider [phone] Masha Mckeon PharmD Unavailable [phone] Encounter Details Date Type Department Care Team ([facility] Contact Info) Description 05/16/2022 Orders Only [facility] MEDICINE [address] [place], [place] [phone] [facility] [address] [place] [address] Mixed hyperlipidemia (Primary Dx); Elevated serum creatinine; [...] Upcoming Encounters Date Type Department Care Team ([facility] Contact Info) Description 04/11/2025 1:30 PM EST Medication Management [facility] MED[facility]INE [address] [place] [address] Masha Mckeon, PharmD [address] [place] [address] 06/30/2025 2:00 PM EDT Office Visit [facility] OPTOMETRY [address] [place] [address] TarkaOneida, OD [address] [place] [address] documented as of this encounter Procedures Procedure Name Priority Date/Time Associated Diagnosis Comments PSA, TOTAL Routine 07/23/2022 12:27 PM EDT CREATINE KINASE, TOTAL Routine 07/23/2022 12:27 PM EDT On statin therapy LIPID PANEL, STANDARD Routine 07/23/2022 12:27 PM EDT Mixed hyperlipidemia COMPREHENSIVE METABOLIC PANEL Routine 07/23/2022 12:27 PM EDT Mixed hyperlipidemia documented in this encounter Results * PSA,Total (07/23/2022 12:27 PM EDT) Pathologist [facility] PSA, Total 0.17 < OR = 4.00 ng/mL [facility] Comment: The total PSA value from this assay system is standardized against the WHO standard. The test result will be approximately 20% lower when compared to the equimolar-standardized total PSA (Willi Gilchrist). Comparison of serial PSA results should be interpreted with this fact in mind. This test was performed using the Siemens chemiluminescent method. Values obtained from different assay methods cannot be used interchangeably. PSA levels, regardless of value, should not be interpreted as absolute evidence of the presence or absence of disease. 07/23/2022 12:2 7 PM EDT 07/23/2022 12:27 PM EDT [facility] - 07/24/2022 2:59 AM EDT FASTING:YES FASTING: YES [facility] LAB BLOOD ORDERABLES Final Re sult Performing Organization Address [facility]/ZIP Co de Phone Number [facility] [address], [facility] [place] [address] [employer] [address] [place] [address] * (ABNORMAL) Creatine Kinase, Total (07/23/2022 12:27 PM EDT) Creatine Kinase, Total 239(H) 44 - 196 U/L [facility] [employer] [facility] [facility] [facility] Blood Venous blood specimen / Unknown 07/23/2022 12:27 PM EDT 07/23/2022 12:27 PM EDT Narrative [facility] - 07/24/2022 2:59 AM EDT FASTING:YES FASTING: YES [facility] LAB BLOOD ORDERABLES Final Re sult Performing Organization Address [facility] de Phone Number [facility] [address], [facility] [place] [address] [employer] [address] [place] [address] * (ABNORMAL) Lipid Panel, Standard (07/23/2022 12:27 PM EDT) [facility] Cholesterol, Total 172 <200 mg/dL [facility] [employer] [facility] [employer] [facility] [facility] HDL Cholesterol 45 > OR = 40 mg/dL [facility] [employer] [facility] Triglycerides 355(H) <150 mg/dL [facility] [employer] [facility] Comment: If a non-fasting specimen was collected, consider repeat triglyceride testing on a fasting specimen if clinically indicated. Tre et al. J. of Clin. Lipidol. 2015;9:129-169. LDL Cholesterol 84 mg/dL (calc) [facility] [employer] [facility] [employer] [facility] [facility] Comment: Reference range: <100 Desirable range <100 mg/dL for primary prevention; <70 mg/dL for patients with CHD or diabetic patients with > or = 2 CHD risk factors. LDL-C is now calculated using the Greg calculation, which is a validated novel method providing better accuracy than the Friedewald equation in the estimation of LDL-C. Brian JENSEN et al. BRAVO. 2013;310(19): 9610-3455 (http://education.Spokeable/faq/NFL448) Chol/HDLC Ratio 3.8 <5.0 (calc) BPT Non-HDL Cholesterol 127 <130 mg/dL (calc) [facility] [employer] [facility] [employer] [facility] [facility] Comment: For patients with diabetes plus 1 major ASCVD risk factor, treating to a non-HDL-C goal of <100 mg/dL (LDL-C of <70 mg/dL) is considered a therapeutic option. Blood Venous blood specimen / Unknown 07/23/2022 12:27 PM EDT 07/23/2022 12:27 PM EDT Narrative [facility] - 07/24/2022 2:59 AM EDT FASTING:YES FASTING: YES [facility] LAB BLOOD ORDERABLES Final Re sult [facility] [address], [place] [address] [employer] [facility] [employer] [facility] [address] [place] [address] * (ABNORMAL) Comprehensive Metabolic Panel (07/23/2022 12:27 PM EDT) Glucose 254(H) 65 - 99 mg/dL [facility] [employer] [facility] Comment: Fasting reference interval For someone without known diabetes, a glucose value >125 mg/dL indicates that they may have diabetes and this should be confirmed with a follow-up test. Urea Nitrogen (BUN) 34(H) 7 - 25 mg/dL [facility] Creatinine, Serum 1.60(H) 0.70 - 1.30 mg/dL [facility] [facility] eGFR 50(L) > OR = 60 mL/min/1. 73m2 [facility] [employer] [facility] [employer] [facility] [facility] Comment: The eGFR is based on the CKD-EPI 2020 equation. To calculate the new eGFR from a previous Creatinine or Cystatin C result, go to https://www.kidney.org/professionals/ kdoqi/gfr%5Fcalculator BUN/Creatinine Ratio 21 6 - 22 (calc) BPT Sodium 135 135 - 146 mmol/L [facility] Potassium 4.7 3.5 - 5.3 mmol/L [facility] Chloride 101 98 - 110 mmol/L [facility] Carbon Dioxide 26 20 - 32 mmol/L [facility] Calcium 9.8 8.6 - 10.3 mg/dL [facility] Protein, Total 8.3(H) 6.1 - 8.1 g/dL [facility] Albumin 4.4 3.6 - 5.1 g/dL [facility] Globulin 3.9(H) 1.9 - 3.7 g/dL (calc) [facility] Albumin/Globuli n Ratio 1.1 1.0 - 2.5 (calc) [facility] Bilirubin, Total 0.4 0.2 - 1.2 mg/dL [facility] Alkaline Phosphatase 67 35 - 144 U/L [facility] AST 19 10 - 35 U/L [facility] ALT 21 9 - 46 U/L [facility] Blood Venous blood specimen / Unknown 07/23/2022 12:27 PM EDT 07/23/2022 12:27 PM EDT Narrative [facility] - 07/24/2022 2:59 AM EDT FASTING:YES FASTING: YES [facility] LAB BLOOD ORDERABLES Final Re sult [facility] [address], [place] [address] [facility] [employer] [facility] [address] [place] [address] documented in this encounter Visit Diagnoses Diagnosis Mixed hyperlipidemia- Primary Elevated serum creatinine Other nonspecific findings on examination of blood On statin therapy documented in this encounter Additional Health Concerns Assessment Noted Time PHQ-9 Depression Total Score: 0 05/14/19 23 2:36 PM EST documented as of this encounter Care Teams Continuous Miner Operator Relationship Specialty Start Date End Date Astrid Cohen FNP [address] [place] [address] PCP - General Family Medicine 11/24/21 Masha Mckeon, HenokD [address] [place] [address] Pharmacist Internal Medicine 07/26/24 documented as of this encounter
--- OUTSIDE RECORDS SUMMARY | 2025-03-21 08:30 | XMS_ITS | Encounter Summary ---
Author Organization [facility] Address [address] [place] [address] Phone Care Team Providers Care Continuous Improvement Intern Name Role Phone [facility] Primary Care Provider [phone] Encounter Details Date Type Department Care Team (Late st Contact Info) Description 05/22/2023 Documentation Only [facility] [address] [place] [address] SaucedoRadha [address] [place] [address] Social History Tobacco Use Types [...] Visit [facility] [address] [place] [address] Sher Haddad MD [address] [place] [address] [place] [address] documented as of this encounter Visit Diagnoses Not on filedocumented in this encounter Care Teams Continuous Improvement Intern Relationship Specialty Start Date End Date [facility] [address] [place], [place] [phone] PCP - General 05/06/23 documented as of this encounter
--- OUTSIDE RECORDS SUMMARY | 2025-03-21 08:30 | XMS_ITS | Encounter Summary ---
Author Organization [facility] Address [address] [facility] 7t [place] [address] Care Team Providers Care Teacher Assistant Name Role Phone Astrid Cohen Primary Care Provider [phone] Masha Mckeon PharmD Unavailable [phone] Encounter Details Date Type Department Care Team (Latest Contact Info) Description 05/13/2019 Abstract [facility] CONVERSIONS Dental, Provider, DDS Social History [...] 1:30 PM EST Medication Management [facility] MEDICINE [address] [place] [address] Masha Mckeon, PharmD [address] [place] [address] 06/30/2025 2:00 PM EDT Office Visit [facility] OPTOMETRY [address] [place] [address] Oneida García, OD [address] [place] [address] documented as of this encounter Visit Diagnoses Not on filedocumented in this encounter Care Teams Teacher Assistant Relationship Specialty Start Date End Date Astrid Cohen FNP [address] [place] [address] PCP - General Family Medicine 11/24/21 Masha Mckeon, Florentino [address] [place] [address] Pharmacist Internal Medicine 07/26/24 documented as of this encounter
--- OUTSIDE RECORDS SUMMARY | 2025-03-21 08:30 | XMS_ITS | Encounter Summary ---
Author Organization [employer] Address [address] [facility] [address] 7t [place] [address] Care Team Providers Care Yard Attendant Name Role Phone Vicki Astrid HEAVY MACHINERY ASSEMBLER Primary Care Provider [phone] Masha Mckeon PharmD Unavailable [phone] Encounter Details Date Type Department Care Team ([facility] st Contact Info) Description 07/09/2023 Orders Only [facility] MEDICINE [address] [place] [address] ProviderMacey MD Social History Tobacco Use Types [...] Description 04/11/2025 1:30 PM EST Medication Management [facility] MEDICINE [address] [place] [address] Masha Mckeon PharmD [address] [place] [address] 06/30/2025 2:00 PM EDT Office Visit [facility] OPTOMETRY [address] [place] [address] Tarka, Oneida, OD [address] [place] [address] documented as of this encounter Procedures Procedure Name Priority Date/Time Associated Diagnosis Comments COLONOSCOPY Routine 08/30/2014 8:56 AM EDT documented in this encounter Results * Colonoscopy (08/30/2014 8:56 AM EDT) Historical Provider HEALTH MAINTENANCE Final Result documented in this encounter Visit Diagnoses Not on filedocumented in this encounter Additional Health Concerns Assessment Noted Time PHQ-9 Depression Total Score: 0 12/26/19 23 2:50 PM EDT documented as of this encounter Care Teams Yard Attendant Relationship Specialty Start Date End Date Astrid Cohen FNP [address] [place] [address] PCP - General Family Medicine 11/24/21 Masha Mckeon PharmD [address] [place] [address] Pharmacist Internal Medicine 07/26/24 documented as of this encounter
--- OUTSIDE RECORDS SUMMARY | 2025-03-21 08:30 | XMS_ITS | Clinical Summary ---
Author Organization [facility] Address [address] [place] [address] [place] [address] Phone Care Team Providers Care Supervisor Maintenance And Custodians Name Role Phone [facility] Primary Care Provider [phone] Allergies Active Allergy Reactions Criticality Noted Date [...] Take 40 mg by mouth 3 Active Diclofenac Sodium 1 % gel Apply 1 Dose topically in the morning and 1 Dose in the evening. 30 g 3 5 Active Active Problems Problem Noted Date Diagnosed [...] anemia 04/26/201908/29 Morbid obesity 04/26/2019 08/29/2020 Immunizations Immunization Administration Dates Next Due Influenza Split High [...] kg (228 lb 9.6 oz) 11/26/2023 1:25 PM EDT Height 175.3 cm (5' 9 ) 11/26/2023 1:25 PM EDT Body Mass Index 33.76 11/26/2023 1:25 PM EDT Plan of Treatment Upcoming Encounters Date Type Department Care Team (Late st Contact Info) Description 04/12/2025 2:50 PM EST Office Visit [facility] [address] [place] [phone] Sher Haddad MD [address] [place] [address] [place] [phone] Health Maintenance Due Date Last Done Comments Colorectal Cancer Screening: Annual FOBT 11/21/2012 Colorectal Cancer Screening: Colonoscopy 11/21/2012 Colorectal Cancer Screening: Sigmoidoscopy 11/21/2012 Diabetes: Ophthalmology Exam 04/26/2019 Diabetes: Pedal Pulse Checked 04/26/2019 Diabetes: Sensory Foot Exam 04/26/2019 Diabetes: Visual Foot Exam 04/26/2019 Hepatitis B Vaccine (3 of 3 - 19+ 3-dose series) 12/14/2022 08/15/2022, 06/13/2022 Diabetes: Hemoglobin A1C 04/05/2025 025, 05/14/2024, 11/05/2023, Additional history exists Pneumococcal Vaccine: 50+ Years Completed 06/13/2022, 02/04/2019, 11/25/2008, Additional history exists Pneumococcal Vaccine: Peds ( 0 to 5 Years) and At-Risk Patients (6 to 49 Years) Discontinued 06/13/2022, 02/04/2019, 11/25/2008, Additional history exists Influenza Vaccine Completed 12/29/2024, , 12/25/2022, Additional history exists Procedures Procedure Name Priority [...] A1c for diagnosis of diabetes for children. 09/01/2020 12:0 1 PM EDT 09/01/2020 12:05 PM EDT Narrative [facility] - 09/02/2020 8:36 AM EDT FASTING:NO PATIENT UNABLE TO VOID; ADVISED TO RETURN FOR COLLECTION. FASTING: NO Resulting Agency Comment Performing Organization Information: Site ID: [id number] Name: [facility] Address: [address] [place] [address], [place] [address] Director: Jase Hatch us Kory Zuniga MD LAB BLOOD ORDERABLES Final Resul t [facility] from Last 3 Months or Most Recently Relevant to Health Maintenance Insurance Medicaid [place] [facility] Care Dual SNP ([id number]) Care Teams Supervisor Maintenance And Custodians Relationship Specialty Start Date End Date [facility] [address] [place] [id number] PCP - General 05/06/23
--- OUTSIDE RECORDS SUMMARY | 2025-03-21 08:30 | XMS_ITS | Encounter Summary ---
Author Organization [facility] Address [address] [place] [address] Phone Care Team Providers Care Typewriter Ribbon Winder Name Role Phone [facility] Primary Care Provider [phone] Encounter Details Date Type Department Care Team (Late Contact Info) Description 09/12/2021 Documentation Only [facility] [address] [place] [address] Kory Zuniga MD [address] [place] [address] [place] [address] Social History Tobacco Use Types [...] Visit [facility] [address] [place] [address] Sher Haddad MD [address] [facility] [place] [address] documented as of this encounter Visit Diagnoses Not on filedocumented in this encounter Care Teams Typewriter Ribbon Winder Relationship Specialty Start Date End Date [facility] [address] [place] [id number] PCP - General 05/06/23 documented as of this encounter
--- OUTSIDE RECORDS SUMMARY | 2025-03-21 08:30 | XMS_ITS | Encounter Summary ---
Author Organization [facility] Address [address] [place] [address] Phone Care Team Providers Care Prison Teacher Name Role Phone [facility] Primary Care Provider [phone] Encounter Details Date Type Department Care Team (Late st Contact Info) Description 03/06/2022 Documentation Only [facility] [address] [place] [address] Ernie Rucker PA [address] [facility] [place] [address] Social History Tobacco Use Types [...] Visit [facility] [address] [facility] [facility] [place] [address] Sher Haddad MD [address] [facility] [place] [address] documented as of this encounter Visit Diagnoses Not on filedocumented in this encounter Care Teams Prison Teacher Relationship Specialty Start Date End Date [facility] [address] [place] [address] [id number] PCP - General 05/06/23 documented as of this encounter
--- OUTSIDE RECORDS SUMMARY | 2025-03-21 08:30 | XMS_ITS | Clinical Summary ---
Author Organization [employer] Address [address] [facility] 7[address] [place] [address] Care Team Providers Care Occupational Health Manager Name Role Phone Astrid Cohen BRUSH POLISHER Primary Care Provider [phone] Masha Mckeon PharmD Unavailable [phone] Allergies Active Allergy Reactions Criticality Noted Date Comments Atorvastatin 04/25/2010 Other reaction(s): elevated LFTs Simvastatin 04/25/2010 Other reaction(s): elevated CPK Medications Blood Pressure kit Active Diclofenac Sodium 1 % gel Apply 2 g topically 4 times daily. Active Acetaminophen Extra Strength 500 MG tabletIndications :Inguinal strain, right, subsequent encounter TAKE 2 TABLETS BY MOUTH EVERY 8 HOURS NEEDED FOR MILD PAIN 100 tablet 1 024 Active insulin lispro (HumaLOG) 100 UNIT/ML injectionIndicati ons:Type 2 diabetes mellitus with hyperglycemia, with long-term current use of insulin ([facility]),Encounter for immunization Inject 6 Units under the skin before evening meal. 15 mL 1 025 Active fenofibrate (Tricor) 48 MG tabletIndications :Hypertriglycerid emia Take 1 tablet (48 mg) by mouth Once per day. 30 tablet 02/15/20 25 2:16 PM EST 025 2025 Active Jardiance 25 MGIndications:Typ e 2 diabetes mellitus with hyperglycemia, without long-term current use of insulin (HCC) TAKE 1 TABLET BY MOUTH EVERY MORNING 30 tablet 11 02/15/20 25 2:16 PM EST 025 Active olmesartan (BENIcar) 40 MG tabletIndications :Hypertension, essential TAKE 1 TABLET BY MOUTH EVERY MORNING 90 tablet 3 025 Active Lantus SoloStar 100 UNIT/ML penIndications:Ty pe 2 diabetes mellitus with hyperglycemia, without long-term current use of insulin ([facility]) INJECT 10 UNITS SUBCUTANEOUSLY AT BEDTIME 15 mL 1 025 Active TRUEplus Lancets 33G miscIndications:T ype 2 diabetes mellitus with hyperglycemia, without long-term current use of insulin ([facility]) TEST BLOOD SUGAR EVERY 8 HOURS DIRECTED 100 each 5 025 Active lidocaine (Lidoderm) 5 % patchIndications: Acute pain of left knee Apply 1 patch topically Once per day. Remove & discard patch within 12 hours or as directed by MD. 30 patch 1 025 Active ezetimibe (Zetia) 10 MG tabletIndications :Mixed hyperlipidemia TAKE 1 TABLET BY MOUTH EVERY MORNING 90 tablet 3 025 Active metoprolol succinate XL (Toprol-XL) 200 MG 24 hr tabletIndications :Primary hypertension TAKE 1 TABLET BY MOUTH EVERY MORNING 90 tablet 1 02/15/20 25 2:16 PM EST 025 Active glucose blood (FreeStyle Precision Kenneth Test) test strip Use to test blood sugar up to 3 times daily, as directed in 100 each 11 025 Active Continuous Glucose Sensor (FreeStyle Onelia 2 Plus Sensor) miscIndications:T ype 2 diabetes mellitus with hyperglycemia, with long-term current use of insulin ([facility]) 1 each every 8 (eight) hours. Apply 1 sensor every 15 days as directed for CGM. Continue to scan Q8H, at minimum, to capture 24 hr BG data. 2 each 03/02/20 25 4:25 PM EST 025 Active chlorthalidone (Hygroton) 25 MG tabletIndications :Primary hypertension TAKE 1 TABLET BY MOUTH EVERY MORNING 90 tablet 1 025 Active FLUoxetine (PROzac) 10 MG capsuleIndication s:Depression, unspecified depression type TAKE 1 CAPSULE BY MOUTH EVERY MORNING 30 capsule 3 025 Active amLODIPine (Norvasc) 10 MG tablet TAKE 1 TABLET BY MOUTH EVERY EVENING 90 tablet 1 025 Active Ferrous Sulfate (iron) 325 (65 Fe) MG tablet TAKE 1 TABLET BY MOUTH EVERY OTHER DAY AT NOON 45 tablet 1 025 Active Icosapent Ethyl (Vascepa) 1 g capsule Take 1 capsule (1 g) by mouth with breakfast and with evening meal. 60 capsule 02/15/20 25 2:16 PM EST 025 2025 Active Alcohol Swabs (Alcohol Prep) 70 % padsIndications:T ype 2 diabetes mellitus with hyperglycemia, without long-term current use of insulin ([facility]) USE DIRECTED TWICE DAILY 100 each Active Tirzepatide (Mounjaro) 15 MG/0.5ML solution auto-injectorIndi cations:Type 2 diabetes mellitus with hyperglycemia, with long-term current use of insulin ([facility]) Inject 15 mg under the skin 1 (one) time per week. 2 mL Active Embecta Pen Needle Catalina 32G X 4 MM misc USE DAILY DIRECTED WITH INSULIN Active Aspirin Low Dose 81 MG EC tablet TAKE 1 TABLET BY MOUTH EVERY MORNING 90 tablet 1 Active pravastatin (Pravachol) 40 MG tabletIndications :Type 2 diabetes mellitus with hyperglycemia, without long-term current use of insulin (HCC) TAKE 1 TABLET BY MOUTH EVERY EVENING 30 tablet 11 025 Active pravastatin (Pravachol) 40 MG tabletIndications :Type 2 diabetes mellitus with hyperglycemia, without long-term current use of insulin ([facility]) Take 1 tablet (40 mg) by mouth in the evening. 30 tablet 02/15/20 25 2:16 PM EST 024 2024 Discontinued Aspirin Low Dose 81 MG EC tablet TAKE 1 TABLET BY MOUTH EVERY MORNING 90 tablet 1 025 2024 Discontinued Active Problems Problem Noted Date Diagnosed Date Acute pain of left knee 09/21/2024 Assessment & Plan (09/21/2024 4:01 PM EDT): I advised to elevate his knee put some ice and rest I will prescribe for patient prednisone in light of his history of CKD I also prescribed for him some lidocaine patches that he can apply locally I ordered an x-ray patient will be contacted with results I refer patient to orthopedic orthopedics as per his request Hypertriglyceridemia 07/07/2022 Overview (05/01/2023): On zetia Unable to tolerate statin Icosapent ethyl PA submitted (pending) Assessment & Plan (05/01/2023 1:36 PM EST): Will repeat FLP today and consider fibrate if indicated Healthcare maintenance 05/20/2022 Overview (10/10/2022): CRC: 2014, negative , repeat PSA:06/2022 .17 Vision: [place], DED Dental: Discuss at f/u STi screening: Neg [...] units before dinner Maintenance: - Eye Exam: [facility] yearly. UTD - Foot [...] Component Value Date HGBA1C 13.4 (H) 05/01/2023 Suspect possible point of care testing error as patient has been consistent with medications and reports home readings < 200. Will confirm with venous blood draw INCREASE Trulicity to 4.5mg subcutaneous Foot exam complete today-Risk 0 Will follow up pending updated labs Assessment & Plan (01/07/2023 10:02 AM EDT): Lab Results Component Value Date HGBA1C 9.0 (A) 12/25/2022 A1c continuing to improve INCREASE trulicity to 3.0mg At follow up visit will consider discontinuing glipizide ER as I doubt it is having significant impact on BS given low dose Assessment & Plan (10/10/2022 2:05 PM EDT): Lab Results Component Value Date HGBA1C 9.8 (A) 09/25/2022 A1c improving INCREASE trulicity to 1.5mg SQ Assessment & Plan (07/07/2022 9:37 AM EDT): Lab Results Component Value Date HGBA1C 12.3 (A) 06/25/2022 Improvement in A1c Patient adamant that he is not interested [...] Component Value Date HGBA1C >14.0 (H) 05/14/2022 INCREASE glipizide to 5mg ER RESTART jardiance 25mg daily Pt is not interested in injectable medications at this time Initial labs ordered-pending results will consider restarting metformin Referral to medbox placed Continue to work with [facility] nutrition Chronic kidney disease (CKD) , stage III (moderate) ([facility]) 07/22/2012 Overview (07/30/2023): Followed by [facility] Stage IIIb-baseline creatinine 1.7-1.9 Per nephrology no complement abnormality but slight increase in beta-2 globlin. Negative immunofixation. Positive EVNAGELINA Assessment & Plan (06/03/2023 11:06 AM EST): [...] Assessment & Plan (01/07/2023 10:03 AM EDT): Repeat lipid panel today Assessment & Plan (10/10/2022 2:09 PM EDT): START zetia 10mg daily. Reviewed administration, risks, side effects Repeat lipid panel at follow up. If ASCVD >20% will quintero for PCSK9 PA Assessment & Plan (07/07/2022 9:43 AM EDT): START omega 3 1000mg b.i.d for elevated triglycerides Repeat fasting lipid panel at follow up, if persistent LDL elevation plan to add ezetimibe Anxiety state 09/13/2011 Overview (05/20/2022): Prozac 10mg Working with therapist Assessment & Plan (05/20/2022 9:36 AM EST): Well controlled with medication and therapy Continue current regimen. Contact HC if sx worsen or experiencing thoughts of SI or self harm Hypertension 09/13/2011 Overview (04/25/2023): Olmesartan 40mg daily Amlodipine 10mg Metoprolol 100mg ER Chlorthalidone 25 mg daily Maintenance: BMP: 05/2022 [...] Assessment & Plan (01/07/2023 10:04 AM EDT): BP elevated INCREASE chlorthalidone to 25mg once daily RN BP check 2 weeks with repeat BMP at this time Assessment & Plan (10/10/2022 2:08 PM EDT): Continue current regimen Assessment & Plan (07/07/2022 9:39 AM EDT): START chlorthalidone 12.5mg Continue other medications as prescribed RN BP check 2 weeks with repeat BMP and fasting lipid panel Assessment & Plan (05/20/2022 9:42 AM EST): INCREASE olmesartan to 40mg b.i.d Obesity 09/13/2011 Obstructive sleep apnea syndrome 09/13/2011 Palpitations 04/14/2011 Encounters Date Type Department Care Team Description 03/07/2025 Travel 03/02/2025 Refill [facility] [address] [place] [address] [place] Astrid, [facility] Type 2 diabetes mellitus with hyperglycemia, without long-term current use of insulin ([facility]) 02/22/2025 Refill [facility] [address] [place] [address] Sarina Bush MD 02/14/2025 Travel 02/10/2025 Telephone [facility] [address] [place], [place] [phone] Lisa Moreno, AMY CGM PA 01/04/2025 Refill [facility] [address], [place] [phone] [facility] Type 2 diabetes mellitus with hyperglycemia, without long-term current use of insulin (HCC) 01/03/2025 Travel 12/24/2024 Telephone [facility] [address], [place] [phone] [facility] Durable Medical Equipment ([facility]: DME Request) 12/21/2024 Refill [facility] [address], [place] [phone] [facility] from Last 3 Months Immunizations Immunization Administration Dates Next Due HepB-CpG 08/15/2022,06/13/2022 Influenza Injectable Quadriv alant Preservative Free IIV4 MDCK 12/31/2021,02/23/2020 Influenza injectable quadriv alent IIV4 with preservative 02/04/2017,03/01/2016,03/17/2015 Influenza injectable quadriv alent preservative free 12/25/2022,01/02/2021,02/04/2019,06/26 Influenza, High Dose Seasona l, Preservative Free 11/29/2014 Influenza, IIV3, injectable 01/04/2014, 1 Influenza, Injectable, MDCK, preservative free 12/31/2023 Influenza, Recombinant, inje ctable, preservative free 12/29/2024 Influenza, Split (incl. anjana fied surface antigen) 12/28/2012,12/25/2011 MMR 09/02/2005 Moderna Covid-19 Vaccine 12+ 09/13/2021, 03/13/2021,07/31/2020,07/03 Pfizer Covid-19 Vaccine 12+ 01/03/2025,,04/25/2023 Pneumococcal Conjugate PCV 20 06/13/2022 Pneumococcal Conjugate PCV 7 11/25/2008 Pneumococcal Polysaccharide PPSV23 02/04/2019, RSV Bivalent 02/14/2025 TD (adult), 2 Lf tetanus tox oid, [...] Sign Reading Time Taken Comments Blood Pressure 110/72 02/14/2025 2:02 PM EST Pulse 81 02/14/2025 2:02 PM EST Temperature 36.4 C (97.6 F) 09/21/2024 2:20 PM EDT Respiratory Rate 16 09/21/2024 2:20 PM EDT Oxygen Saturation 97% 09/21/2024 2:20 PM EDT Inhaled Oxygen Concentration - - Weight 99.1 kg (218 lb 6.4 oz) 09/21/2024 2:20 P M EDT Height 175.3 cm (5' 9 ) 05/14/2024 12:55 PM EST Body Mass Index 32.25 05/14/2024 12:55 PM EST Plan of Treatment Upcoming Encounters Date Type Department Care Team (Late st Contact Info) Description 04/11/2025 1:30 PM EST Medication Management [facility] [address] [place] [address] Masha Mckeon, PharmD [address] [place] [address] 06/30/2025 2:00 PM EDT Office Visit [facility] [address] [place] [address] Oneida García, OD [address] [place] [address] Health Maintenance Due Date Last Done Comments CT Colonography 1963 FIT DNA/Cologuard 1963 FIT 1963 FOBT 1963 Sigmoidoscopy 1963 Disability Screening 1963 Alcohol/Substance Use Screening 1975 Colorectal Cancer Screening 03/31/2024 Colonoscopy 08/30/2024 08/30/2014 Diabetes: Foot Exam 02/08/2025 02/09/2024, 02/09/2024, 04/25/2023, Additional history exists Diabetes: Hemoglobin A1C 04/05/2025 025, 05/14/2024, 02/09/2024, Additional history exists SDOH Screening 05/03/2025 05/03/2024 Depression Screening 05/14/2025 05/14/2024, 05/14/19 Tobacco Screening 05/20/2025 05/20/2024 Diabetes: Urine Protein Screening 05/26/2025 05/26/2024, 05/01/2023, 09/13/2021, Additional history exists Lipid Panel 05/26/2025 05/26/2024, 10/29, 05/01/2023, Additional history exists Eye Exam 07/22/2025 07/23/2023, 03/31/2021 DTaP/Tdap/Td Vaccines (3 - Td or Tdap) 06/13/2032 06/13/2022, 12/25/2011, 01/14/2008, Additional history exists Zoster Vaccines Completed 04/27/2020, 04/01, 02/23/2020, Additional history exists HIV Screening Completed 01/29/2022 Pneumococcal Vaccine: 50+ Years Completed 06/13/2022, 02/04/2019, 11/25/2008, Additional history exists Hepatitis B Vaccines Completed 08/15/2022, 06/14/19 23 Influenza Vaccine Completed 12/29/2024, , 12/25/2022, Additional history exists COVID-19 Vaccine Completed 01/03/2025, 01/2024, 04/25/2023, Additional history exists RSV Patients and Patients Aged 60 years or older Completed 02/14/2025 HIB Vaccines Aged Out No longer eligi [...] age to complete this topic Meningococcal B Vaccine Aged Out No l onger eligible based on patient's age to complete this topic Meningococcal Vaccine Aged Out No oscar parveen eligible based on patient's age to complete this topic RSV under 20 months Aged Out No longe r eligible based on patient's age to complete this topic Rotavirus Vaccines Aged Out No longer eligible based on patient's age to complete this topic Goals Goal Patient Goal Type Associated Problems Recent Progress Patient-Stated? Author Help patients manage their type 2 diabetes Care Plan Help patients manage their type 2 diabetes Lisa Ortega RN Weekly blood pressure task Care Plan Weekly blood pressure task No Lisa Moreno RN Help patients manage their type 2 diabetes Care Plan Help patients manage their type 2 diabetes No Lisa Moreno RN Patient has chronic kidney disease Care Plan Patient has chronic kidney disease No Lisa Moreno RN Weekly blood pressure task Care Plan Weekly blood pressure task No Lisa Moreno RN Patient has chronic kidney disease Care Plan Patient has chronic kidney disease No Lisa Moreno RN Weekly blood pressure task Care Plan Weekly blood pressure task Masha Spangler PharmD Weekly blood pressure task Care Plan Weekly blood pressure task No Masha Mckeon PharmD Patient has chronic kidney disease Care Plan Patient has chronic kidney disease Masha Spangler PharmD Patient has chronic kidney disease Care Plan Patient has chronic kidney disease No Masha Mckeon PharmD Procedures Procedure Name Priority Date/Time Associated Diagnosis Comments POCT GLYCATED HEMOGLOBIN, TOTAL Routine 01/03/2025 1:51 PM EDT Type 2 diabetes mellitus with hyperglycemia, with long-term current use of insulin ([facility]) ALBUMIN, RANDOM URINE W/CREATININE Routine 05/26/2024 3:24 PM EST Type 2 diabetes mellitus with hyperglycemia, with long-term current use of insulin ([facility]) LIPID PANEL, STANDARD Routine 05/26/2024 3:24 PM EST Mixed hyperlipidemia HIV 1/2 ANTIGEN/ANTIBODY, FOURTH GENERATION W/RFL Routine 01/29/2022 3:31 PM EDT HM COLONOSCOPY Routine 08/30/2014 8:56 AM EDT from Last 3 Months or Most Recently Relevant to Health Maintenance Results * (ABNORMAL) POCT A1c (01/03/2025 1:51 PM EDT) Hemoglobin A1C 8.1(A) 4.0 - 5.7 % QC Media Lot # [id number] Lot# Expiration Date [id number] Blood 01/03/2025 1:51 PM EDT [facility] POINT OF CARE TEST ENTER/EDIT ORDERABLES Final Result * Albumin, Random Urine W/Creatinine (05/26/2024 3:24 PM EST) Creatinine, Urine 94.81 mg/dL [facility] Microalbumin Urine 14.0 mg/L [facility] Microalbum Creatinine Ratio Ur 14.7 <30 ug/mg cr [facility] Comment:Albumin/Creatinine R atio Reference Ranges: Normal: < 30 ug/mg creatinine Microalbuminuria: 30 - 300 ug/mg creatinineClinical Albuminuria: > 300 ug/mg creatinine Urine 05/26/2024 3:24 PM EST 05/26/2024 4:20 PM EST [facility] LAB URINE ORDERABLES Final Re sult [facility] [address] [place] [phone] * (ABNORMAL) Lipid Panel, Standard (05/26/2024 3:24 PM EST) Triglycerides 404(H) <150 mg/dL [facility] Comment:Desirable Triglyceri de: less than 150 mg/dLBorderline High Triglyceride 150-199 mg/dLHigh Triglyceride: 200-499 mg/dLVery High Triglyceride: greater than or equal to 5OO mg/dL Cholesterol 202(H) <200 mg/dL [facility] Comment:Desirable Cholestero l: less than 200 mg/dLBorderline High Cholesterol: 200-239 mg/dLHigh Cholesterol: greater than 239 mg/dL LDL Cholesterol Calculated TNP <100 mg/dL [facility] Comment:Unable to calculate the LDL. The formula of Friedwald,Garcia, and Howie is only valid if the triglycerides areless than 400 mg/dl. HDL Cholesterol 38(L) >40 mg/dL [facility] Comment:Desirable HDL: great er than 40 mg/dL Note: This HDL assay may give artificially low results in patients with liver disease. Blood Venous blood specimen / Unknown 05/26/2024 3:24 PM EST 05/26/2024 4:14 PM EST [facility] LAB BLOOD ORDERABLES Final Re sult Performing Organization Address [facility] Co de Phone Number [facility] [address] [place] [address] [phone] * HIV 1/2 ANTIGEN/ANTIBODY,FOURTH GENERATION W/RFL (01/29/2022 3:31 PM EDT) [facility] HIV-1/2 ANTIGEN AND ANTIBODIES, 4TH GENERATION W/ REFLEX NON-REACT KRYSTLE NON-REACT KRYSTLE [facility] Comment: HIV-1 antigen and HIV-1/HIV-2 antibodies were not detected. There is no laboratory evidence of HIV infection. PLEASE NOTE: This information has been disclosed to you from records whose confidentiality may be protected by state law. If your state requires such protection, then the state law prohibits you from making any further disclosure of the information without the specific written consent of the person to whom it pertains, or as otherwise permitted by law. A general authorization for the release of medical or other information is NOT sufficient for this purpose. For additional information please refer to http://education.Copytele.Sprout/faq/JAI709 (This link is being provided for informational/ educational purposes only.) The performance of this assay has not been clinically validated in patients less than 2 years old. 01/29/2022 3:31 PM EDT [facility] BLOOD ORDERABLES Final Re sult Performing Organization Address [facility] Co de Phone Number [facility] * Hm Colonoscopy (08/30/2014 8:56 AM EDT) Historical Provider HEALTH MAINTENANCE Final Result from Last 3 Months or Most Recently Relevant to Health Maintenance Additional Health Concerns Active Problems Noted Date Diagnosed Date Help patients manage their type 2 diabetes 02/10 Weekly blood pressure task 02/10/2025 Help patients manage their type 2 diabetes 02/10 Patient has chronic kidney disease 02/10/2025 Weekly blood pressure task 02/10/2025 Patient has chronic kidney disease 02/10/2025 Weekly blood pressure task 02/14/2025 Weekly blood pressure task 02/14/2025 Patient has chronic kidney disease 02/14/2025 Patient has chronic kidney disease 02/14/2025 Insurance Care Teams Occupational Health Manager Relationship Specialty Start Date End Date Astrid Cohen FNP [address] [place] [phone] PCP - General Family Medicine 11/24/21 Masha Mckeon PharmD [address] [place] [address] Pharmacist Internal Medicine 07/26/24
--- OUTSIDE RECORDS SUMMARY | 2025-03-21 08:30 | XMS_ITS | Encounter Summary ---
Author Organization [employer] Address [address] [facility] [address] [place] [address] Care Team Providers Care Children'S Entertainer Name Role Phone Astrid Cohen FONDANT COOKER Primary Care Provider [phone] Masha Mckeon PharmD Unavailable [phone] Reason for Referral * Consultation (Routine) - Pending Review Specialty Diagnoses / Procedures Referred By Contac t Referred To Contact Pharmacy Diagnoses Type 2 diabetes mellitus with hyperglycemia, without long-term current use of insulin ([facility]) Natty Palumbo MD [address] [place] [address] Phone: tel: fax: Referral ID Status Reason Start Date Expiration Date Visits Requested Visits Authorized [id number] Pending Review Consult and Treat 06/04/2024 06/04/2025 6 6 Encounter Details Date Type Department Care Team (Late st Contact Info) Description 06/04/2024 Orders Only [facility] [address] [place] [address] Natty Palumbo MD [address] [place], [place] [phone] Type 2 diabetes mellitus with hyperglycemia, without long-term current use of insulin ([facility]/HCC) (Primary Dx) Social History Tobacco Use Types Packs/Day Years [...] Description 04/11/2025 1:30 PM EST Medication Management [facility] [address] [place] [address] Masha Mckeon, PharmD [address] [place] [address] 06/30/2025 2:00 PM EDT Office Visit [facility] [address] [place] [address] Monaomaira Oneida, OD [address] [place], [place] [phone] Scheduled Referrals Name Type Priority Associated Diagnoses Orde r Schedule Referral to Pharmacy CDTM Outpatient Referral Routine Type 2 diabetes mellitus with hyperglycemia, without long-term current use of insulin ([facility]) Ordered: 06/04/2024 documented as of this encounter Visit Diagnoses Diagnosis Type 2 diabetes mellitus with hyperglycemia, without long-term current use of insulin ([facility])- Primary documented in this encounter Additional Health Concerns Assessment Noted Time PHQ-9 Depression Total Score: 0 05/14/19 1:08 PM EST documented as of this encounter Care Teams Children'S Entertainer Relationship Specialty Start Date End Date Astrid Cohen FNP [address] [place] [address] PCP - General Family Medicine 11/24/21 Masha Mckeon PharmD [address] [place] [address] Pharmacist Internal Medicine 07/26/24 documented as of this encounter
--- OUTSIDE RECORDS SUMMARY | 2025-03-21 08:30 | XMS_ITS | Encounter Summary ---
Author Organization [facility] Address [address] [place] [address] Phone Care Team Providers Care Rigger Apprentice Name Role Phone [facility] Primary Care Provider [phone] Reason for Visit * Reason Comments Med Refill Encounter Details Date Type Department Care Team (Late Contact Info) Description 10/17/2022 Refill [facility] [address] [place] [address] Ernie Rucker PA [address] [place] [address] Social History Tobacco Use Types [...] Visit [facility], [address] [place] [address] Sher Haddad MD [address] [place] [address] documented as of this encounter Visit Diagnoses Not on filedocumented in this encounter Care Teams Rigger Apprentice Relationship Specialty Start Date End Date [facility] [address] [place] [id number] PCP - General 05/06/23 documented as of this encounter
--- OUTSIDE RECORDS SUMMARY | 2025-03-21 08:30 | XMS_ITS | Encounter Summary ---
Author Organization [facility] Address [address] [place] [address] Phone Care Team Providers Care Groundman/Lineman Name Role Phone [facility] Primary Care Provider [phone] Encounter Details Date Type Department Care Team (Late st Contact Info) Description 05/26/2023 Documentation Only [facility] [address] [place] [address] [address] [place] [address] Social History Tobacco Use Types [...] [facility] [address] [place] [address] Sher Haddad MD [address] [place] [address] [place] [address] documented as of this encounter Visit Diagnoses Not on filedocumented in this encounter Care Teams Groundman/Lineman Relationship Specialty Start Date End Date [facility] [address], [place] [id number] PCP - General 05/06/23 documented as of this encounter
--- OUTSIDE RECORDS SUMMARY | 2025-03-21 08:30 | XMS_ITS | Clinical Summary ---
Author Organization [facility] it Address [address] [place] [address] Care Team Providers Care Engineering Manager Electronics Name Role Phone Maycol Rothman NP Primary Care Provider [phone] Social History Tobacco Use Types Packs/Day Years Used Date Smoking Tobacco: Never Assessed Sex and Gender Information Value Date Recorded Sex Assigned at Not on file Legal Sex Male 9:04 AM EST Gender Identity Not on file Sexual Orientation Not on file Plan of Treatment Health Maintenance Due Date Last Done Comments Colorectal Cancer Screening: Colonoscopy 1965 DTaP,Tdap,and Td Vaccines (1 - Tdap) 11/21/1982 Zoster Vaccines (1 of 2) 11/21/2013 Pneumococcal Vaccine: 50+ Years (2 of 2 - PCV) 02/05/2020 02/04/2019 Cholesterol Screening (Lipid Panel) 03/13/2022 HIV Screening 03/13/2022 Hepatitis C Screening 03/13/2022 Social Influencers of Health Screening 03/13/2022 Hypertension/CHF/CAD Annual BMP Blood Test 03/16/2022 Depression Screening 03/31/2024 COVID-19 Vaccine (1 - 2024-2 6 season) 2024 Influenza Vaccine (#1) 2024 , 06/26/2018 RSV Immunization Adult Patients (1 - 1-dose 75+ series) 11/21/2038 HIB Vaccines Aged Out No longer eligi [...] age to complete this topic Care Teams Engineering Manager Electronics Relationship Specialty Start Date End Date Maycol Rothman NP [place], [place] PCP - General 09/28/10
--- OUTSIDE RECORDS SUMMARY | 2025-03-21 08:30 | XMS_ITS | Encounter Summary ---
Author Organization [facility] Address [address] [place] [address] Phone Care Team Providers Care Heavy Equipment Service Manager Name Role Phone [facility] Primary Care Provider [phone] Encounter Details Date Type Department Care Team (Late st Contact Info) Description 09/12/2021 Documentation Only [facility] [address] [place] [address] Ernie Rucker PA [address] [place] [address] Social History Tobacco Use Types [...] Visit [facility] [address] [place] [address] Sher Haddad MD [address] [place] [address] documented as of this encounter Visit Diagnoses Not on filedocumented in this encounter Care Teams Heavy Equipment Service Manager Relationship Specialty Start Date End Date [facility] [address] [place] [id number] PCP - General 05/06/23 documented as of this encounter
--- OUTSIDE RECORDS SUMMARY | 2025-03-21 08:30 | XMS_ITS | Encounter Summary ---
Author Organization [facility] Address [address] [place] [address] Care Team Providers Care Speech Pathology Assistant Name Role Phone Astrid Cohen Primary Care Provider [phone] Masha Mckeon PharmD Unavailable [phone] Encounter Details Date Type Department Care Team (Latest Contact Info) Description 08/10/2020 Abstract [facility] CONVERSIONS Dental, Provider, DDS Social History Tobacco [...] Description 04/11/2025 1:30 PM EST Medication Management [facility] MEDICINE [address] [place] [address] Masha Mckeon, PharmD [address] [place] [address] 06/30/2025 2:00 PM EDT Office Visit [facility] OPTOMETRY [address] [place] [address] Oneida García, OD [address] [place] [address] documented as of this encounter Visit Diagnoses Not on filedocumented in this encounter Care Teams Speech Pathology Assistant Relationship Specialty Start Date End Date Astrid Cohen FNP [address] [place] [address] PCP - General Family Medicine 11/24/21 Masha Mckeon, Florentino [address] [place] [address] Pharmacist Internal Medicine 07/26/24 documented as of this encounter
[2025-03-21 11:06] LABS: MANUAL DIFF FLAG NO
[2025-03-21 11:10] LABS: Appearance Urine Clear; Glucose Urine UA >=1000 mg/dL (Negative); PH 5.5 (5.0-9.0); Specific Gravity - Urine 1.020 (1.005-1.025); UMIC TRIGGER UA YES
[2025-03-21 11:21] LABS: Hematocrit 37.8 % (42.0-52.0); Hemoglobin 12.0 g/dl (14.0-18.0); Imm Gran Abs Auto 0.04 X10*3/uL (0.00-0.03); Imm Gran Pct Auto 0.4 % (0.0-0.4); Lymphocytes Absolute Auto 4.4 X10*3/uL (1.2-4.9); Mean Corpuscular HGB Conc 31.7 g/dl (31.0-36.0); Mean Corpuscular Hemoglobin 28.8 pg (27.0-33.0); Mean Corpuscular Volume 90.6 fL (80.0-98.0); NRBC Abs Auto 0.000 X10*3/uL (0.0-0.012); NRBC Pct Auto 0.0 /100WBC (0.0-0.2); Platelet Count 359 X10*3/uL (160-400); Red Blood Count 4.17 X10*6/uL (4.60-5.80); White Blood Count 9.5 X10*3/uL (4.8-10.8)
[2025-03-21 11:27] LABS: Albumin Level 4.4 g/dL (3.5-5.0); Anion Gap 13 (12-20); Blood Urea Nitrogen 40 mg/dL (9-16); Calcium 9.6 mg/dL (8.4-10.2); Carbon Dioxide 25 mmol/L (22-29); Chloride 108 mmol/L (96-108); Estimated Glomerular Filt Rate 25; Magnesium 2.5 mg/dL (1.6-2.6); Potassium 4.8 mmol/L (3.3-5.1); Sodium 141 mmol/L (135-145); Uric Acid 10.3 mg/dL (3.4-7.0)
[2025-03-21 12:08] LABS: Parathyroid Hormone Intact 110.6 pg/mL (8.7-77.1)
[2025-03-21 15:11] LABS: Alanine Aminotransferase 25 U/L (0-40); Albumin Level 4.4 g/dL (3.5-5.0); Alkaline Phosphatase 59 U/L (39-117); Anion Gap 13 (12-20); Aspartate Amino Transferase 23 U/L (5-37); Blood Urea Nitrogen 42 mg/dL (9-16); Calcium 9.6 mg/dL (8.4-10.2); Carbon Dioxide 24 mmol/L (22-29); Chloride 109 mmol/L (96-108); Cholesterol 196 mg/dL (<200); Estimated Glomerular Filt Rate 26; HDL Cholesterol 37 mg/dL (>40); Potassium 4.8 mmol/L (3.3-5.1); Sodium 141 mmol/L (135-145); Total Protein 8.0 g/dL (6.5-8.0); Triglycerides 312 mg/dL (<150)
== END 2025-03-21 08:20 | disposition home or self-care (01) ==
LOC: HO.HHCL 08:19
PROVIDERS: PCP Registered Nurse; Referring Provider Internal Medicine Nephrology; Visit Provider Registered Nurse
DX: I12.9 Hypertensive chronic kidney disease with stage 1 through stage 4 chronic kidney disease, or unspecified chronic kidney disease (principal); N18.32 Chronic kidney disease, stage 3b; E78.2 Mixed hyperlipidemia
CPT/HCPCS: 36415; 80048; 80061; 80076; 81001; 82040; 82570; 82652; 83735; 83970; 84100; 84550; 85025